=== PATIENT | male | born 1955 | race Caucasian/White ===

== ENCOUNTER 2020-12-07 14:16 | Outpatient (CLI) | payer BC, SELFPAY ==
--- NOTE | 2020-12-07 14:31 | ECHO_ITS ---
Patient Info Name: Arie Ortiz Age: 65 years : 1955 Gender: Male Ht: 73 in Wt: 235 lbs BSA: 2.37 m2 HR: 82 bpm BP: 123 / 81 mmHg Technical Quality: Good Exam Date: 12/07/2020 3:05 PM Exam Location: [facility] Patient Status: Outpatient Admit Date: 12/07/2020 Staff Ordering Physician: Edd Reyes DO Brick Molder Hand: Ruby Roca RDCS Attending Provider: Edd Reyes DO Referring Physician: Eric HIGGINBOTHAM; Exam Type: CA echo doppler color flow Study Info Indications R94.31 - Abnormal electrocardiogram ECG EKG Complete two-dimensional, color flow and Doppler transthoracic echocardiogram is performed. Summary 1. Complete two-dimensional, color flow and Doppler transthoracic echocardiogram is performed. 2. Left ventricular chamber dimension is normal. 3. Left ventricular systolic function is normal, estimated at 60-65%. 4. The left ventricular diastolic function is grade I diastolic dysfunction. 5. E/e' 9 is minimally elevated. 6. Left atrial chamber dimension is mildly enlarged. 7. Right atrial chamber dimension is mildly enlarged. 8. There is moderate aortic valve sclerosis. 9. There is trace tricuspid valve regurgitation. 10. No pulmonary hypertension, estimated pulmonary arterial systolic pressure is 32 mmHg. Left Ventricle E/e' 9 is minimally elevated. Left ventricular chamber dimension is normal. Left ventricular systolic function is normal, estimated at 60-65%. The left ventricular diastolic function is grade I diastolic dysfunction. Right Ventricle Right ventricular chamber dimension is normal. Right ventricular systolic function is normal. Left Atria Left atrial chamber dimension is mildly enlarged. Right Atria Right atrial chamber dimension is mildly enlarged. Aortic Valve The aortic valve is trileaflet. There is moderate aortic valve sclerosis. There is no aortic valve stenosis. There is no aortic valve regurgitation. Pulmonic Valve There is no pulmonic regurgitation. Mitral Valve There is no mitral valve stenosis. There is no mitral valve regurgitation. Tricuspid Valve There is trace tricuspid valve regurgitation. No pulmonary hypertension, estimated pulmonary arterial systolic pressure is 32 mmHg. Pericardium/Pleural There is no pericardial effusion. Inferior Vena Cava Normal inferior vena cava with >50% collapse upon inspiration consistent with normal right atrial pressure, 5 mmHg. Aorta The aortic root size at the sinus of Valsalva is normal. Left Ventricular Outflow Tract Name Value Normal LVOT 2D LVOT Diameter 2.1 cm LVOT Doppler LVOT Peak Gradient 6 mmHg LVOT Mean Gradient 3 mmHg LVOT VTI 22 cm LVOT VTI/AV VTI Ratio 0.6 LVOT Stroke Volume 75 ml LVOT CO 17.5 l/min LVOT CI 7.4 l/min/m2 Pulmonic Valve Name
== END 2020-12-07 14:17 | disposition home or self-care (01) ==
PROVIDERS: PCP Internal Medicine; Visit Provider Internal Medicine
DX: R94.31 Abnormal electrocardiogram [ECG] [EKG] (principal); R00.1 Bradycardia, unspecified; I35.1 Nonrheumatic aortic (valve) insufficiency
CPT/HCPCS: 93306

== ENCOUNTER 2021-03-05 10:27 | Emergency (ER) | payer BC, SELFPAY ==
--- NOTE | ~2021-03-05 | XR_ITS ---
EXAMINATION: XR lumbar spine 2-3V DATE: 03/05/2021 11:38 INDICATION: Right-sided low back pain TECHNIQUE: Anteroposterior and lateral views of the lumbar spine, and cone-down lateral view of the l umbosacral junction were obtained. COMPARISON: 06/05/2016 FINDINGS: Alignment is normal. Vertebral body heights are normal. No significant change in moderate disc height loss at L5-S1. Again seen are small anterior osteophytes at L3-L5. Multilevel mild lumbar facet oste oarthritis. Sacral arches are intact. Mild bilateral sacroiliac osteoarthritis. Normal bowel gas ness adiel. 7 mm calcification project over the lower pole of the right kidney potentially renal stone. IMPRESSION: 1. Spondylosis with unchanged moderate disc height loss at L5-S1. No acute osseous abnormality. 2. Possible 7 mm right renal stone. Reviewed, dictated and finalized at location A. SALTER IMPRESSION: 1. Spondylosis with unchanged moderate disc height loss at L5-S1. No acute osse ous abnormality. 2. Possible 7 mm right renal stone.
--- NOTE | ~2021-03-05 | CT_ITS ---
EXAMINATION: CT abdomen pelvis wo con DATE: 03/05/2021 12:05 INDICATION: Right flank pain and nausea TECHNIQUE: Computed tomography (CT) of the abdomen and pelvis was performed without intravenous contr ast. Automated exposure control and iterative reconstruction technique were employed. The dose-length product was 958.20 mGy-cm. COMPARISON: CT pelvis dated 09/10/2016 FINDINGS: Lung bases are clear. Heart size is normal. No pericardial or pleural effusion. Atherosclerotic coron juanita artery calcification. Aortic valve calcification. A few tiny hepatic and splenic calcifications c onsistent with old granulomatous disease. Liver, pancreas, left kidney and bilateral adrenal glands a re normal. 2.2 cm right renal cyst. 1 mm stone in the mid right kidney and 6 mm stone at a lower pole of the right kidney. No ureteral stones or hydronephrosis. Bladder is normal. Mild prostatomegaly me asuring 4.5 x 3.7 cm. There are a few cecal diverticula without adjacent inflammatory change to sugge st diverticulitis. Small bowel is normal with no obstruction. The appendix is not visualized. No kentrell cecal inflammatory change to suggest acute appendicitis. No free intraperitoneal gas or fluid. No pat hologically enlarged abdominal or pelvic lymphadenopathy. Mild scattered degenerative skeletal change s in the spine and pelvis. Bone island at the left superior pubic ramus. IMPRESSION: 1. Nonobstructing right nephrolithiasis. 2. Mild prostatomegaly. Reviewed, dictated and finalized at location A. ERING MACHINE FEEDER
--- NOTE | ~2021-03-05 | XR_ITS ---
EXAMINATION: XR abdomen/kub 1V DATE: 03/05/2021 12:35 INDICATION: Kidney stone. Nausea. TECHNIQUE: A supine view of the abdomen on 2 radiographs was obtained. COMPARISON: CT abdomen and pelvis 03/05/2021 FINDINGS: There are no dilated loops of bowel. There is a 6 mm stone in right kidney. There is a phle bolith in right pelvis. IMPRESSION: 1. 6 mm stone in right kidney. Reviewed, dictated and finalized at location B. RAGE HOST
[2021-03-05 10:36] VITALS: BP 145/80; PULSE 87; RESP 15; TEMP 35.7; O2SAT 100
[2021-03-05 10:58] LABS: Basophils Percent Auto 0.3 % (0.2-1.2); Eosinophils Absolute Auto 0.1 K/mm3 (0-0.3); Eosinophils Percent Auto 1.1 % (0-4.4); Hematocrit 44.6 % (42.0-52.0); Hemoglobin 15.1 g/dL (14.0-18.0); Immature Granulocyte Absolute 0.05 K/mm3 (0.00-0.031); Immature Granulocyte Percent A 0.5 % (0-0.5); Lymphocytes Percent Auto 25.9 % (18.3-44.2); Mean Corpuscular HGB Conc 33.9 g/dl (32-36); Mean Corpuscular Hemoglobin 28.8 pg (26-34); Mean Platelet Volume 10.8 fl (7.4-10.4); Monocytes Absolute Auto 0.7 K/mm3 (0.1-0.6); Monocytes Percent Auto 7.6 % (2.6-8.5); Neutrophils Percent Auto 64.6 % (45.5-73.1); Platelet Count Result 242 k/mm3 (150-375); Red Blood Count 5.25 M/mm3 (4.6-6.20); Red Cell Distribution Width 13.3 % (11.5-14.5); White Blood Count 9.3 K/mm3 (4.5-10.0)
[2021-03-05 11:07] LABS: Alanine Aminotransferase 22 U/L (4-50); Albumin Level 4.7 g/dL (3.5-5.1); Alkaline Phosphatase 89 U/L (38-126); Anion Gap 13 mmol/L (8-16); Aspartate Amino Transferase 22 U/L (17-59); Bilirubin,Total 0.9 mg/dL (0.2-1.3); Blood Urea Nitrogen 17 mg/dL (9-20); Calcium 9.5 mg/dL (8.4-10.2); Carbon Dioxide 22 mmol/L (22-30); Chloride 98 mmol/L (98-107); Estimated CRCL calculation 82 ml/min; Estimated Glomerular Filt Rate > 60; Glucose 162 mg/dL (65-110); Lipase 612 U/L (23-300); Potassium 4.1 mmol/L (3.4-5.0); Sodium 133 mmol/L (137-145)
--- NOTE | 2021-03-05 11:45 | ED.GENADULT ---
HPI - General Adult General Chief complaint: Back Pain/Injury Stated complaint: real bad pains in R flank Time Seen by Provider: 03/05/21 11:13 Source: patient History of Present Illness HPI narrative: Patient is 65 y/o male complaining of right back pain starting 3 days ago. He describes his pain as sharp, stabbing and rates it as 8/10. He took Alleve and Mucinex, which did not help. His pain radiates to right upper abdomen. He feels a knot sometimes on his abdominal wall. He has no vomiting, diarrhea, dysuria or hematuria. He denies recent injury to back. Related Data Allergies Allergy/AdvReac Type Severity Reaction Status Date / Time No Known Allergies Allergy Unknown Verified 02/27/20 10:28 Review of Systems Constitutional: Constitutional: Denies chills, Denies fever(s), Denies headache(s) and Denies weakness Eyes: Eyes: Denies blurry vision ENT: Denies headache(s) and Denies neck pain Cardiovascular: Cardiovascular: Denies chest pain and Denies dyspnea Respiratory: Respiratory: Denies cough and Denies dyspnea Gastrointestinal: Gastrointestinal: Reports abdominal pain, Denies diarrhea, Denies nausea and Denies vomiting Genitourinary: Genitourinary: Denies hematuria and Denies dysuria Musculoskeletal: Musculoskeletal: Reports back pain and Denies neck pain Neurologic: Denies headache(s) and Denies weakness PMFSH Past Medical History Medical History Diabetes mellitus Essential hypertension Hyperlipemia Family History Family History Mother Family history of Alzheimer's disease Sibling Family history of coronary artery disease Social History Social History Smoking status: Former smoker Smoking end date: 04/13/98 Alcohol intake: never Exam Const: General: no acute distress, well developed and anxious Orientation/consciousness: oriented to person, oriented to place, oriented to time and patient oriented x3 HENMT: Head: normocephalic Ears: external ears normal General nose exam: Normal external nose present Eyes: General: appearance normal, both eyes and all related structures Conjunctivae: conjunctivae normal Neck: Neck: normal visual inspection and full ROM Chest: Chest palpation & inspection: normal inspection of the chest and no tenderness Resp: Effort & Inspection: normal respiratory effort Auscultation: clear to auscultation bilaterally Cardio: Rate: regular rate Rhythm: regular rhythm GI: GI Palp: No abdominal tenderness and Yes Soft to palpation Skin: General skin exam: normal color and turgor normal Neuro: General: oriented to person, oriented to place, oriented to time and patient oriented x3 Cognition (Neuro): normal cognition Extrem: General: normal to inspection, full ROM and no pedal edema Psych: Appearance: grossly normal Mental Status: mental status grossly normal Affect: Anxious affect present Course Consultations Consultation #1: Discussed with Tri (urology), who states non obstructive stone is not the cause of pain. Patient can follow up with urology as outpatient. Date: 03/05/21 Time: 16:25 Vital Signs Vital signs: Vital Signs Temperature 35.7 C L 03/05/21 10:36 Pulse Rate 87 03/05/21 10:36 Respiratory Rate 15 03/05/21 10:36 Blood Pressure 145/80 H 03/05/21 10:36 Pulse Oximetry 100 03/05/21 10:36 Temperature 35.7 C L 03/05/21 10:36 Pulse Rate 75 03/05/21 13:59 Respiratory Rate 18 03/05/21 13:59 Blood Pressure 185/93 H 03/05/21 13:59 Pulse Oximetry 100 03/05/21 13:59 Medical Decision Making Vital Signs Vital Signs: Vital Signs Temperature 35.7 C L 03/05/21 10:36 Pulse Rate 87 03/05/21 10:36 Respiratory Rate 15 03/05/21 10:36 Blood Pressure 145/80 H 03/05/21 10:36 Pulse Oximetry 100 03/05/21 10:36 Temperature 35.7 C L 03/05/21 10:36
[2021-03-05 11:54] LABS: Add Urine Microscopic? NO; Appearance Urine Clear (Clear); Bilirubin Urine Negative (Negative); Blood Urine Negative (Negative); Color Urine Yellow (Yellow); Glucose Urine UA Negative (Negative); Ketones Urine Negative (Negative); Leukocyte Esterase Ur Negative LEU/UL (Negative); Nitrate Urine Negative (Negative); Protein Urine Negative (Negative); Specific Grav Ur 1.017 (1.001-1.035); Urobilinogen Urine Negative mg/dL (<2.0)
[2021-03-05] MEDS: KETOROLAC 30 MG/ML VIAL (*BKC) IV PUSH (12:07)
[2021-03-05] MEDS: SODIUM CHLORIDE 0.9% IV 1,000 ML 999 ML IV CONT (12:08)
[2021-03-05] MEDS: CYCLOBENZAPRINE HCL 10 MG TABLET PO (12:08)
[2021-03-05] MEDS: ONDANSETRON INJ 4 MG/2 ML VIAL IV PUSH (12:24)
[2021-03-05] MEDS: diazePAM INJ (*CRX) 10 MG/2 ML SYRINGE 5 MG IV PUSH (13:54)
[2021-03-05 13:59] VITALS: BP 185/93; PULSE 75; RESP 18; O2SAT 100
== END 2021-03-05 19:04 | disposition home or self-care (01) ==
PROVIDERS: Emergency Medicine; Emergency Provider Emergency Medicine; PCP Internal Medicine
DX: M54.41 Lumbago with sciatica, right side (principal); N20.0 Calculus of kidney; N40.0 Benign prostatic hyperplasia without lower urinary tract symptoms; E11.9 Type 2 diabetes mellitus without complications; I10 Essential (primary) hypertension; E78.5 Hyperlipidemia, unspecified
CPT/HCPCS: 36415; 72100; 74018; 74176; 80053; 81003; 83690; 85025; 96361; 96374; 96375; 99284; A9270; J1885; J2405; J3360; J7030

== ENCOUNTER 2021-03-26 12:34 | Outpatient (CLI) | payer BC, SELFPAY ==
[2021-03-26 13:15] LABS: INR 0.9; Prothrombin Time 12.1 Seconds (11.1-14.7)
[2021-03-26 13:16] LABS: Partial Thromboplastin Time 30.7 SECONDS (22.3-36.8)
== END 2021-03-26 12:35 | disposition home or self-care (01) ==
LOC: ANHSURGERY 12:38
PROVIDERS: PCP Internal Medicine; Visit Provider Urology
DX: Z01.812 Encounter for preprocedural laboratory examination (principal); N20.0 Calculus of kidney
CPT/HCPCS: 36415; 85610; 85730; 87086; 87088

== ENCOUNTER 2021-03-29 03:30 | Day surgery (SDC) | payer BC, SELFPAY ==
[2021-03-25 15:01] VITALS: BMI 29.9
--- NOTE | 2021-03-25 15:20 | PC.NURSE ---
Report to the Outpatient Waiting Room, entrance under the green pavilion located off [facility], at time _11:30AM on date 03/29/21 . OR Time: __1:30PM . - You and your visitor will be asked a series of questions to screen for COVID 19 for your protection. - A mask is required within the hospital. - Only one visitor is allowed at this time. Patient visitors will be guided where to wait when not with patient. Preoperative COVID Testing Requirements: No COVID Test needed if: (proof is required; if not received patient will have Rapid Test prior to entry) - Patient has received COVID Vaccine at least 14 days prior to procedure date or - Patient has positive COVID test result within last 90 days of surgery date. COVID Test needed if above criteria is not met If not COVID vaccinated a COVID test must be conducted within 72 hours of surgery and patient is asked to isolate self from time of testing until procedure. You will go to the [facility] for your COVID testing. The [facility] site is located at the corner of [address] from [facility]. You will only be called if COVID results are positive and your surgeon may reschedule your elective surgery date. Patients may have clear liquids (water, carbonated beverages, clear teas, apple juice) until 3 hours prior to surgery with a maximum of 20 ounces. - No food from midnight until time of surgery - Infants may have breast milk until 4 hours before surgery, infant formula 6 hours prior to surgery. - Children will be allowed to drink immediately following surgery. If applicable, please bring a bottle or sippy cup to assist with drinking. Juice, water, soda, and popsicles are readily available. For infants on formula, please bring formula the day of surgery. Pacifiers are allowed. Take the following medications with a SIP of water the morning of surgery: CYCLOBENZAPRINE NEEDED Medications to discontinue per physician NONE Date to take last dose Please no make-up, nail french, hairspray, perfume, deodorant, or body powder the day of surgery. No jewelry (including any body piercings) or valuables the day of surgery, leave them at home. Please take a shower or bath the night before, or the morning of, surgery with an antibacterial soap. Wear comfortable, loose fitting clothing. Children are encouraged to wear pajamas. - Jewelry must be removed prior to entering the operating room. Rings and piercings that are not removed may be cut off. - The hospital will not accept responsibility for valuables. - Please leave all valuables, including medications, at home the day of surgery. If you are going home after surgery, a licensed coach tour driver must drive you home. - NO public transportation without another adult. - We recommend that an adult stay with you for 24 hours following discharge. - We also recommend that you do not drive, make important decision, drink alcoholic beverages, or take any drugs that were not prescribed by your health care provider for at least 24 hours after your discharge time. For Pediatric surgeries, we recommend two adults accompany the child home (only one inside the building at this time). Follow any additional instructions given to you from your surgeon. Telephone instructions given to __PATIENT and asked if any additional questions and then verbalized understanding. Patient advised to call surgeon office or pre surgery nurse liaison [phone] if any additional questions.
[2021-03-29] VITALS (8 sets, daily range): BP systolic 128–156; BP diastolic 76–93; PULSE 55–78; RESP 14–56; TEMP 36.1–36.2; O2SAT 99–100
--- NOTE | ~2021-03-29 | XR_ITS ---
EXAMINATION: XR abdomen/kub 1V INDICATION: Right-sided stone TECHNIQUE: Supine views of the abdomen were obtained on 2 radiographs. COMPARISON: 03/05/2021 FINDINGS: There is an 8 mm stone in the lower pole of the right kidney. Phleboliths are noted in the pelvis. No additional urolithiasis is identified. The bowel gas pattern is normal. IMPRESSION: 1. 8 mm stone in the right kidney lower pole. Reviewed, dictated and finalized at location A. ITY PERSON
--- NOTE | 2021-03-29 06:47 | WPDHPUPDATE1 ---
History and Physical Update Update Date/Time: 03/29/21 06:47 History and Physical has been reviewed, including an updated exam of the patient. There are NO changes in the patient's condition. Risks, benefits, and alternatives have been discussed and questions answered. Patient agrees to proceed with procedure.
--- NOTE | 2021-03-29 12:28 | P.PNAN_ITS ---
Anes - Initial Pre Proc Eval Procedure: Operation Date: 03/29/21 14:00 Proposed Procedures p Right Renal, Extracorporeal Shock Wave Lithotripsy - Grover Steen MD Date/Time: 03/29/21 12:28 Surgeon: Grover Steen MD Pre Op Diagnosis: right renal stone Patient Data Age: 65 Gender: M Height: 1.85 m Weight: 103 kg Allergies Allergy/AdvReac Type Severity Reaction Status Date / Time No Known Allergies Allergy Unknown Verified 03/25/21 14:58 Home Medications Medication Instructions Recorded Confirmed Type blood sugar diagnostic #100 ea 08/29/20 03/12/21 Rx blood-glucose meter #1 ea 08/29/20 03/12/21 Rx lancets 30 gauge #100 ea 08/30/20 03/12/21 Rx metformin 1,000 mg tablet 1,000 mg PO BID #180 tablet 01/22/21 03/25/21 Rx sitagliptin 50 mg tablet 50 mg PO DAILY #90 tablet 01/28/21 03/25/21 Rx atorvastatin 20 mg tablet 20 mg PO DAILY #90 tablet 02/04/21 03/25/21 Rx cyclobenzaprine 10 mg PO TID PRN #10 tablet 03/05/21 03/25/21 Rx glimepiride 1 mg PO QAM 03/25/21 03/25/21 History hydrochlorothiazide 12.5 mg PO QAM 03/25/21 03/25/21 History lisinopril 20 mg PO QAM 03/25/21 03/25/21 History Patient hx anesthesia problems: none Family hx anesthesia problems: none Results Review: All pre-operative results and documents have been reviewed as part of the pre-operative evaluation. [facility] Past Medical History Medical History (Updated 03/29/21 @ 12:28 by Abilio Newell MD) Diabetes mellitus Essential hypertension Hyperlipemia Obesity Family History Family History Mother Family history of Alzheimer's disease Sibling Family history of coronary artery disease Social History Social History Smoking packs per day: 1 Smoking cigarettes per day: 20.0 Years smoked: 30 Smoking pack-years: 30.00 Smoking status: Former smoker Tobacco type: cigarettes Smoking end date: 04/13/98 Alcohol intake: never 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 Substance use: never Living arrangements: with family Additional living arrangements comments: Spiritual care concerns: No Anes - Eval Final PreProcedure Day of Procedure 03/29/21 12:28 Patient weight: obese Heart: regular rate and rhythm Lungs: clear to auscultation Airway: Mallampati scale class II Neurological: alert and oriented Last oral intake: >/= 8 hours ASA classification: III Emergent: no Anesthetic plan: proceed Anesthesia type and monitoring: general LMA and standard monitoring Results Review: All pre-operative results and documents have been reviewed as part of the pre-operative evaluation. Informed Consent: The patient's anesthetic plan and its attendant risks and benefits were discussed with the patient/family/POA. Questions were solicited and answers provided to the satisfaction of the patient/family/POA.
[2021-03-29] MEDS: LACTATED RINGERS 1,000 ML 30 ML IV CONT ×2 (13:12→15:00)
[2021-03-29 13:14] LABS: Glucose Point of Care 130 mg/dl (65-105)
[2021-03-29] MEDS: ceFAZolin 2 GM/D5W 50 ML 2 GM/50 ML BAG IVPB (13:15)
--- NOTE | 2021-03-29 13:22 | W.PM.PROC2 ---
Procedure Note - Detailed Date of Procedure 03/29/21 Pre-op Diagnosis Right renal stone Post-op Diagnosis same Procedure Performed The patient was brought to the operative suite where he was placed in the supine position on the Dornier lithotripsy table. The focal point of the lithotripter was placed at a 5mm right renal calculus. A total of 2500 shocks were delivered at a power setting of 4. There appeared to be good fragmentation of the stone. The patient tolerated the procedure well and was taken to the recovery room in good condition. Surgeon Grover Steen MD Anesthesia general Description of Procedure The patient was brought to the operative suite where [] was placed in the supine position on the Dornier lithotripsy table. The focal point of the lithotripter was placed at a 5mm right renal calculus. A total of 2500 shocks were delivered at a power setting of 4. There appeared to be good fragmentation of the stone. The patient tolerated the procedure well and was taken to the recovery room in good condition. Estimated Blood Loss 0 Drains No Packing No Pathology none sent Complications No immediate complications Condition stable Disposition PACU
[2021-03-29] MEDS: KETOROLAC 30 MG/ML VIAL (*BKC) IV PUSH (13:25)
[2021-03-29 14:32] LABS: Glucose Point of Care 122 mg/dl (65-105)
== END 2021-03-29 15:47 | disposition home or self-care (01) ==
PROVIDERS: PCP Internal Medicine; Visit Provider Urology
PROC: (CPT 50590; principal; 2021-03-29 14:00)
DX: N20.0 Calculus of kidney (principal); E11.9 Type 2 diabetes mellitus without complications; I10 Essential (primary) hypertension; E78.5 Hyperlipidemia, unspecified; Z79.84 Long term (current) use of oral hypoglycemic drugs; E66.9 Obesity, unspecified; Z68.30 Body mass index [BMI] 30.0-30.9, adult; Z87.891 Personal history of nicotine dependence
CPT/HCPCS: 50590; 74018; 82948; J0690; J1885; J2250; J2405; J2704; J7120

== ENCOUNTER → 2021-05-31 08:18 | Outpatient (CLI) | payer MEDICARE, SELFPAY ==
--- NOTE | ~2021-05-31 | CT_ITS ---
EXAMINATION: CT abdomen wo con DATE: 05/31/2021 08:53 INDICATION: Abdominal mass TECHNIQUE: Computed tomography (CT) of the abdomen was performed without intravenous contrast. Automa paul exposure control and iterative reconstruction technique were employed. Exam dose: 666.18 mGy-cm total exam DLP. COMPARISON: 03/29/2021 KUB 03/05/[address] abdomen pelvis FINDINGS: The lung bases are clear. Normal heart size. No pericardial or pleural effusion. The liver, gallbladder, bile ducts, spleen, pancreas, pancreatic duct, and adrenal glands are unremar kable. Approximately 1.7 cm mid renal probable cyst. Approximately 6 x 8 x 10.7 mm lower pole right renal nonobstructing calculus. The left kidney is unremarkable. No left or right ureteral calculus or hydroureteronephrosis is evide nt within the abdomen; the pelvis is not included. There is atherosclerotic calcification of the abdominal aorta and common iliac arteries but no abdomi nal aortic aneurysm. No intraperitoneal or retroperitoneal mass lesion or adenopathy or ascites. Very small fat-containing umbilical hernia. Diffuse idiopathic skeletal hyperostosis of the lower thoracic spine and moderate degenerative change of the lumbar spine. IMPRESSION: 1.7 cm right renal cyst Right renal calculus Reviewed, dictated and finalized at Location A. Reviewed, dictated and finalized at location B. RMODAL TRUCK DRIVER
== END ==
PROVIDERS: PCP Family Medicine; Visit Provider Family Medicine
DX: R19.00 Intra-abdominal and pelvic swelling, mass and lump, unspecified site (principal); N28.1 Cyst of kidney, acquired; N20.0 Calculus of kidney
CPT/HCPCS: 74150

== ENCOUNTER 2021-09-23 08:05 | Observation (INO) | payer MEDICARE, SELFPAY ==
[2021-09-23] VITALS (11 sets, daily range): BP systolic 137–193; BP diastolic 62–98; PULSE 52–90; RESP 14–24; TEMP 35.9–36.3; O2SAT 97–100; BMI 31.0
--- NOTE | ~2021-09-23 | XR_ITS ---
EXAMINATION: XR abdomen/kub 1V DATE: 09/23/2021 09:15 INDICATION: Right flank pain. TECHNIQUE: A supine view of the abdomen on 2 radiographs was obtained. COMPARISON: Abdomen radiographs 03/29/2021, CT abdomen and pelvis 09/23/2021 FINDINGS: There are no dilated loops of bowel. There is a 7 mm stone in right kidney. There is a 5 mm stone in proximal right ureter. There is a phlebolith in right pelvis. IMPRESSION: 1. 5 mm stone in proximal right ureter. 2. 7 mm right kidney stone. Reviewed, dictated and finalized at location B.
--- NOTE | ~2021-09-23 | XR_ITS ---
EXAMINATION: XR retrograde pyelo w/stent RT DATE: 09/23/2021 16:15 CDT INDICATION: RIGHT SIDE SPECIAL . TECHNIQUE: 93 fluoroscopic images of the lower abdomen were obtained during retrograde pyelography an d stent placement performed by the surgeon. I was not present in the operating room. Fluoroscopy expo sure time was 40.6 seconds. Cumulative dose was 0.35688 mGy2. COMPARISON: X-ray abdomen, same date FINDINGS: Right lower pole calcification. Retrograde contrast injection in the right ureter occurred with some intraluminal air bubbles. The 5 mm proximal right ureteral stone is again identified, initially is crews periorly displaced, then obscured by contrast. Wire access to the right pelvis and calyces. Subsequen t right ureteral stent placement, in good position. IMPRESSION: Fluoroscopic documentation of right retrograde pyelography with stent placement. Reviewed, dictated and finalized at location K. IMPRESSION: Fluoroscopic documentation of right retrograde pyelography with stent placement .
--- NOTE | ~2021-09-23 | XR_ITS ---
EXAMINATION: XR chest 1V portable DATE: 09/23/2021 08:25 INDICATION: Right rib pain TECHNIQUE: frontal view of the chest was obtained. COMPARISON: Chest radiograph dated 01/08/2006 FINDINGS: The lungs are clear with no focal airspace opacities, pulmonary edema, pleural effusion or pneumothor ax. The cardiomediastinal silhouette is normal. Visualized bones and soft tissues are unremarkable. IMPRESSION: 1. No acute cardiopulmonary disease. Reviewed, dictated and finalized at location A.
--- NOTE | ~2021-09-23 | CT_ITS ---
EXAMINATION: CT abdomen pelvis wo con DATE: 09/23/2021 08:58 INDICATION: Right flank pain. TECHNIQUE: Computed tomography (CT) of the abdomen and pelvis was performed without intravenous contr ast. Automated exposure control and iterative reconstruction technique were employed. The dose-length product was 1010.90 mGy-cm. COMPARISON: CT abdomen 05/31/2021 FINDINGS: The visualized portions of the lung bases demonstrate mild atelectasis. No pleural effusion . The heart size is normal. There are coronary artery calcifications. No pericardial effusion. The li venancio, gallbladder, and pancreas are normal. Calcifications in the spleen are consistent with old granu lomatous disease. The adrenal glands are normal. There is a 2.3 cm cyst in right kidney. There is a 7 mm stone in right kidney. There is mild right hydronephrosis. There is a 5 mm stone in proximal righ t ureter. There is a 1 mm stone in left kidney. The prostate is mildly enlarged. There are no dilated loops of bowel. The appendix is not visualized. There are no pathologically enlarged lymph nodes. Th ere is no free intraperitoneal fluid. There is severe lower lumbar spondylosis. IMPRESSION: 1. 5 mm stone in proximal right ureter with mild right hydronephrosis. 2. Bilateral nonobstructing kidney stones. Reviewed, dictated and finalized at location B.
--- NOTE | 2021-09-23 08:13 | ECG_ITS ---
Measurements Intervals [place] Rate: 77 P: 63 TX: 192 QRS: 75 QRSD: 116 T: 46 QT: 385 QTc: 438 Interpretive Statements BASELINE ARTIFACT, REDUCED ECG QUALITY SINUS RHYTHM NONSPECIFIC T-WAVE ABNORMALITY ABNORMAL ECG NO PREVIOUS ECG AVAILABLE FOR COMPARISON Electronically Signed On 09-23-2021 15:33:18 CDT by Jones Wharton M.D.
--- NOTE | 2021-09-23 08:21 | ED.ABDPAIN ---
HPI - Abdominal Pain General Chief Complaint: Abdominal Pain Stated Complaint: Right flank pain, N/V Source: patient, RN notes reviewed and old records reviewed Mode of arrival: EMS Limitations: no limitations History of Present Illness HPI narrative: This is a 66 year old female with history of kidney stone who presents for evaluation of right flank pain. He states his pain started last night. His pain has been constant and gradually worsened. He is having associated nausea and vomiting. He states his pain starts in his right flank and it radiates to his right upper abdomen. He reports history of kidney stone but he does not this this is due to kidney stone. He denies history of cholelithiasis. He denies dysuria, hematuria or increased urinary frequency. He denies cough, fever or shortness of breath. Rates pain 10/10. He was given 100 mcg fentanyl by EMS prior to arrival. Related Data Home Medications Medication Instructions Recorded Confirmed hydrochlorothiazide 12.5 mg tablet 12.5 mg PO QAM 03/25/21 09/23/21 Allergies Allergy/AdvReac Type Severity Reaction Status Date / Time No Known Allergies Allergy Unknown Verified 09/23/21 08:35 Review of Systems Review of Systems: All systems reviewed & are unremarkable except as noted in HPI and below Constitutional: Constitutional: Denies chills and Denies fatigue Cardiovascular: Cardiovascular: Denies chest pain and Denies rapid heart rate Respiratory: Respiratory: Denies chest congestion, Denies cough and Denies dyspnea Gastrointestinal: Gastrointestinal: Reports abdominal pain, Reports nausea and Reports vomiting Genitourinary: Genitourinary: Denies hematuria, Denies oliguria and Denies urinary frequency Musculoskeletal: Musculoskeletal: Reports back pain Neurologic: Denies focal weakness and Denies numbness Endocrine: Endocrine: Denies excessive sweating and Denies fatigue [facility] Past Medical History Medical History Diabetes mellitus Essential hypertension Hyperlipemia Obesity Family History Family History Mother Family history of Alzheimer's disease Sibling Family history of coronary artery disease Social History Social History Smoking packs per day: 1 Smoking cigarettes per day: 20.0 Years smoked: 30 Smoking pack-years: 30.00 Smoking status: Former smoker Alcohol intake: never 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 Substance use: never Additional living arrangements comments: Spiritual care concerns: No Exam Const: General: alert; No diaphoretic Other: appears to be in distress due to severe pain HENMT: Head: normal to inspection Eyes: Conjunctivae: conjunctivae normal EOM: EOMs intact bilaterally Chest: Chest palpation & inspection: normal inspection of the chest Resp: Effort & Inspection: normal respiratory effort Auscultation: clear to auscultation bilaterally Cardio: Rate: regular rate Rhythm: regular rhythm Heart sounds: no murmurs GI: GI Palp: Yes Soft to palpation, Yes Tenderness to palpation present (GI) (right flank,Diffuse), No Guarding due to palpation present (GI), No Rigid due to palpation and No Hernia present Auscultation: normal bowel sounds : General: Yes CVA tenderness on the right Back/Spine/Pelvis: Back: CVA tenderness Skin: General skin exam: normal color Rashes: no rashes Wounds: no wounds Neuro: General: patient oriented x3, moves all extremities and CN's II-XI intact bilaterally Extrem: General: normal to inspection Psych: Mental Status: mental status grossly normal Course Reevaluation(s) Reevaluation #1: Patient still having significant pain. Tri with urologist came to ER to see patient. He will be taken to [facility] for stent placement Date: 09/23/21 Time: 1
[2021-09-23] MEDS: HYDROmorphone HCL INJ (*CRX) 1 MG/ML SYR IV PUSH ×5 (08:22→19:01)
[2021-09-23] MEDS: ONDANSETRON INJ 4 MG/2 ML VIAL IV PUSH ×2 (08:22→10:11)
[2021-09-23] MEDS: SODIUM CHLORIDE 0.9% IV 1,000 ML 999 ML IV CONT (08:23)
[2021-09-23 08:44] LABS: Basophils Percent Auto 0.3 % (0.2-1.2); Hematocrit 44.2 % (42.0-52.0); Hemoglobin 14.1 g/dL (14.0-18.0); Immature Granulocyte Absolute 0.15 K/mm3 (0.00-0.031); Immature Granulocyte Percent A 1.1 % (0-0.5); Lymphocytes Absolute Auto 1.28 K/mm3 (0.9-3.2); Lymphocytes Percent Auto 9.3 % (18.3-44.2); Mean Corpuscular HGB Conc 31.9 g/dl (32-36); Mean Corpuscular Volume 84.7 fl (80-100); Mean Platelet Volume 10.6 fl (7.4-10.4); Monocytes Absolute Auto 1.1 K/mm3 (0.1-0.6); Monocytes Percent Auto 7.9 % (2.6-8.5); Neutrophils Absolute Auto 11.2 K/mm3 (1.3-6.7); Neutrophils Percent Auto 81.4 % (45.5-73.1); Platelet Count Result 292 k/mm3 (150-375); Red Blood Count 5.22 M/mm3 (4.6-6.20); Red Cell Distribution Width 14.6 % (11.5-14.5); White Blood Count 13.8 K/mm3 (4.5-10.0)
[2021-09-23 08:45] LABS: Appearance Urine Clear (Clear); Bilirubin Urine Negative (Negative); Blood Urine 2+ (Negative); Color Urine Yellow (Yellow); Glucose Urine UA 2+ mg/dL (Negative); Ketones Urine Negative (Negative); Leukocyte Esterase Ur Negative LEU/UL (Negative); Nitrate Urine Negative (Negative); Protein Urine 1+ mg/dL (Negative); Urobilinogen Urine 0.2 mg/dL (<2.0); pH Urine 7.5 (5.0-9.0)
[2021-09-23 08:51] LABS: Mucus Urine Rare /lpf; WBC Urine 0-3 /hpf
--- NOTE | 2021-09-23 08:52 | PC.NURSE ---
Pt at CAT scan at this time
[2021-09-23 08:53] LABS: Alanine Aminotransferase 25 U/L (6-50); Albumin Level 4.6 g/dL (3.5-5.1); Alkaline Phosphatase 108 U/L (38-126); Anion Gap 9 mmol/L (8-16); Aspartate Amino Transferase 21 U/L (17-59); Bilirubin,Total 0.6 mg/dL (0.2-1.3); Blood Urea Nitrogen 15 mg/dL (9-20); Calcium 9.1 mg/dL (8.4-10.2); Carbon Dioxide 24 mmol/L (22-30); Chloride 103 mmol/L (98-107); Estimated CRCL calculation 83 ml/min; Estimated Glomerular Filt Rate > 60; Glucose 262 mg/dL (65-110); Lipase 165 U/L (23-300); Sodium 136 mmol/L (137-145)
[2021-09-23 08:53] LABS: Lactic Acid Reflex 2.7 mmol/L (0.7-2.0)
[2021-09-23 08:54] LABS: Partial Thromboplastin Time 27.9 SECONDS (22.3-36.8); Prothrombin Time 12.3 Seconds (11.1-14.7)
[2021-09-23 08:55] LABS: Add Urine Microscopic? YES
[2021-09-23] MEDS: SODIUM CHLORIDE 0.9% IV 1,000 ML 125 ML IV CONT (10:47)
[2021-09-23 11:40] LABS: Reflex Lactic Acid Yes or No Add Lactic
--- NOTE | 2021-09-23 11:57 | WPDURCON ---
Assessment and Plan Assessment and plan (1) Ureteral calculus, right: Code(s): N20.1 - Calculus of ureter Status: Acute Assessment and Plan: Obtain Consent: Cystoscopy, right ureteroscopy with possible stone removal and right stent placement, right retrograde pyelogram and possible laser lithotripsy. Keep NPO. Plan to go to the OR this afternoon with Dr. Burgess. Obtain a urine cutlure. (2) Bilateral renal stones: Code(s): N20.0 - Calculus of kidney Status: Acute Assessment and Plan: Not visible on KUB and not obstructive, no plans to intervene at this time. Urology Consult Note HPI Date Seen: 09/23/21 Time Seen: 09:30 Requesting Physician: Fidencio Burgess MD Primary Care Provider: Edd Reyes, Consult Narrative Reason for consult: right proximal ureteral stone Narrative: Arie Ortiz is a 66 year old male who presented to the ER this morning in severe pain of the right flank. He is tachypneic, has hypertension, a WBC of 13.8 and UA shows just microhematuria. His CT scan reveals a 5mm right proximal ureteral stone as well as bilateral stones. His ureteral stone is present on KUB. He is in such severe pain at the bedside he wasn't able to answer many questions and was writhing around in his bed. He has a history of kidney stones and was recently seen in our office in 09/[address] Ruiz with plans to watch his stone with a KUB in 6 months. He was not in pain at that time. He denies dysuria, gross hematuria, abdominal pain or vomiting. He does state he has the, dry heaves. Review of Systems Cardiovascular: Cardiovascular: Denies chest pain Gastrointestinal: Gastrointestinal: Denies abdominal pain, Reports nausea and Denies vomiting Genitourinary: Genitourinary: Denies hematuria, Denies dysuria, Reports flank pain and Denies urinary frequency PMF Past Medical History Medical History Diabetes mellitus Essential hypertension Hyperlipemia Obesity Family History Family History Mother Family history of Alzheimer's disease Sibling Family history of coronary artery disease Social History Social History Smoking packs per day: 1 Smoking cigarettes per day: 20.0 Years smoked: 30 Smoking pack-years: 30.00 Smoking status: Former smoker Tobacco type: cigarettes Smoking end date: 04/13/98 Alcohol intake: never 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 [employer] Substance use: never Additional living arrangements comments: Spiritual care concerns: No Meds Home Medications and Allergies Home Medications Medication Instructions Recorded Confirmed Type blood sugar diagnostic (OneTouch #100 ea 08/29/20 04/09/21 Rx Verio test strips) blood-glucose meter (OneTouch #1 ea 08/29/20 04/09/21 Rx Verio Flex Meter) lancets 30 gauge (OneTouch Delica #100 ea 08/30/20 04/09/21 Rx Lancets) sitagliptin 50 mg tablet (Januvia) 50 mg PO DAILY #90 tabs 01/28/21 04/09/21 Rx atorvastatin 20 mg tablet 20 mg PO DAILY #90 tabs 02/04/21 04/09/21 Rx cyclobenzaprine 10 mg tablet 10 mg PO TID PRN back pain #10 tabs 03/05/21 04/09/21 Rx hydrochlorothiazide 12.5 mg tablet 12.5 mg PO QAM 03/25/21 04/09/21 History cephalexin 500 mg capsule 500 mg PO Q8H #9 caps 03/29/21 04/09/21 Rx hydrocodone 5 mg-acetaminophen 325 1 - 2 tablet PO Q6H PRN pain #20 03/29/21 04/09/21 Rx mg tablet tabs metformin 1,000 mg tablet 1,000 mg PO BID #180 tabs 05/02/21 Rx lisinopril 20 mg tablet See Rx Instructions .Route 06/13/21 Rx .COMPLEX #90 tabs suvorexant 10 mg tablet (Belsomra) 10 mg PO QHS PRN insomnia #30 tabs 07/10/21 Rx Allergies Allergy/AdvReac Type Severity Reaction Status Date / Time No Known Allergies Allergy Unknown Verified 09/23/21 08:35 Vital Signs Vital Signs - 24 hr
--- NOTE | 2021-09-23 12:12 | ADMGEN ---
This patient, Arie Ortiz, was admitted to 3 [facility] Surg Room 312-01 at 1205. Patient/family oriented to hospital policies and general routines including ID bracelet, bed and alarms, visiting hours, pain management, procedures, bathroom and other care routines, personal items, smoking policy, room service/diet, and visiting hours. Information on how to activate the Rapid Response Team has been discussed. Patient/Family are encouraged to report perceived risks to care and to ask questions if they do not understand what they are told or what they should do.
[2021-09-23 12:48] LABS: Glucose Point of Care 199 mg/dl (65-105)
[2021-09-23 13:04] LABS: Lactic Acid 1.1 mmol/L (0.7-2.0)
--- NOTE | 2021-09-23 14:39 | PC.NURSE ---
pt off floor at this time for surgery.
[2021-09-23] MEDS: LACTATED RINGERS 1,000 ML 30 ML IV CONT ×2 (14:55→17:37)
--- NOTE | 2021-09-23 15:18 | WPDANESEPPF ---
Anes - Initial Pre Proc Eval Procedure: Operation Date: 09/23/21 16:00 Proposed Procedures p Cystoscopy, Right Ureteroscopy, Right Retrograde Pyelogram, Possible Right Stone Extraction, Possible Right Stent Placement, Possible Holmium Laser Procedure - Fidencio Burgess MD Date/Time: 09/23/21 15:18 Surgeon: Fidencio Burgess MD Pre Op Diagnosis: RIGHT PROXIMAL IRETERAL CALCULUS Patient Data Age: 66 Gender: M Height: 1.85 m Weight: 106.7 kg Last Vital Signs Temp 36.1 C L 09/23/21 13:47 Pulse 69 09/23/21 13:47 Resp 16 09/23/21 13:47 BP 164/62 H 09/23/21 13:47 Pulse Ox 100 09/23/21 13:47 O2 Del Method Room Air 09/23/21 12:29 Allergies Allergy/AdvReac Type Severity Reaction Status Date / Time No Known Allergies Allergy Unknown Verified 09/23/21 08:35 Home Medications Medication Instructions Recorded Confirmed Type blood sugar diagnostic (OneTouch #100 ea 08/29/20 04/09/21 Rx Verio test strips) blood-glucose meter (OneTouch #1 ea 08/29/20 04/09/21 Rx Verio Flex Meter) lancets 30 gauge (OneTouch Delica #100 ea 08/30/20 04/09/21 Rx Lancets) sitagliptin 50 mg tablet (Januvia) 50 mg PO DAILY #90 tabs 01/28/21 09/23/21 Rx atorvastatin 20 mg tablet 20 mg PO DAILY #90 tabs 02/04/21 09/23/21 Rx cyclobenzaprine 10 mg tablet 10 mg PO TID PRN back pain #10 tabs 03/05/21 09/23/21 Rx hydrochlorothiazide 12.5 mg tablet 12.5 mg PO QAM 03/25/21 09/23/21 History hydrocodone 5 mg-acetaminophen 325 1 - 2 tablet PO Q6H PRN pain #20 03/29/21 09/23/21 Rx mg tablet tabs metformin 1,000 mg tablet 1,000 mg PO BID #180 tabs 05/02/21 09/23/21 Rx lisinopril 20 mg tablet See Rx Instructions .Route 06/13/21 09/23/21 Rx .COMPLEX #90 tabs Laboratory Tests 09/23/21 09/23/21 09/23/21 08:32 08:33 08:33 WBC 13.8 K/mm3 H K/mm3 (4.5-10.0) RBC 5.22 M/mm3 M/mm3 (4.6-6.20) Hgb 14.1 g/dL g/dL (14.0-18.0) Hct 44.2 % % (42.0-52.0) MCV 84.7 fl fl (80-100) MCH 27.0 pg pg (26-34) MCHC 31.9 g/dl L g/dl (32-36) RDW 14.6 % H % (11.5-14.5) Plt Count 292 k/mm3 k/mm3 (150-375) MPV 10.6 fl H fl (7.4-10.4) Immature Gran % (Auto) 1.1 % H % (0-0.5) Neut % (Auto) 81.4 % H % (45.5-73.1) Lymph % (Auto) 9.3 % L % (18.3-44.2) [place] % (Auto) 7.9 % % (2.6-8.5) Eos % (Auto) 0.0 % % (0-4.4) Baso % (Auto) 0.3 % % (0.2-1.2) Lymph # (Auto) 1.28 K/mm3 K/mm3 (0.9-3.2) [place] # (Auto) 1.1 K/mm3 H K/mm3 (0.1-0.6) Eos # (Auto) 0.0 K/mm3 K/mm3 (0-0.3) Baso # (Auto) 0.0 K/mm3 K/mm3 (0.0-0.1) Abs Immat Gran (auto) 0.15 K/mm3 H K/mm3 (0.00-0.031) Absolute Neuts (auto) 11.2 K/mm3 H K/mm3 (1.3-6.7) Absolute Nucleated RBC 0.0 K/mm3 K/mm3 (0.0-0.012) Nucleated RBC % 0.0 % % (0.0-0.2) PT 12.3 Seconds Seconds (11.1-14.7) INR 1.0 APTT 27.9 SECONDS SECONDS (22.3-36.8) Sodium Potassium Chloride Carbon Dioxide Anion Gap BUN Creatinine Estim Creat Clear Calc Estimated GFR Glucose POC Capillary Glucose Lactic Acid 2.7 mmol/L H mmol/L (0.7-2.0) Calcium Total Bilirubin AST ALT Alkaline Phosphatase Total Protein Albumin Lipase Urine Color Urine Appearance Urine pH Ur Specific [place] Urine Protein Urine Glucose (UA) Urine Ketones Ur Blood (Man) Urine Nitrate Urine Bilirubin Urine Urobilinogen Leukocyte Esterase Rfl Urine RBC Urine W
--- NOTE | 2021-09-23 16:07 | WPDHPUPDATE1 ---
History and Physical Update Update Date/Time: 09/23/21 16:07 History and Physical has been reviewed, including an updated exam of the patient. There are NO changes in the patient's condition. Risks, benefits, and alternatives have been discussed and questions answered. Patient agrees to proceed with procedure.
[2021-09-23] MEDS: ceFAZolin 2 GM/D5W 50 ML 2 GM/50 ML BAG IVPB (16:15)
[2021-09-23] MEDS: LIDOCAINE HCL 2% GEL UROJET 10 ML PKG MUCOUS MEM (16:31)
--- NOTE | 2021-09-23 17:24 | P.OP_ITS ---
Procedure Note - Detailed Date of Procedure 09/23/21 Pre-op Diagnosis RIGHT PROXIMAL IRETERAL CALCULUS Post-op Diagnosis Same Procedure Performed Cystoscopy, right retrograde pyelogram, right ureteroscopy, holmium laser lithotripsy, basket stone extraction, stent placement Surgeon Fidencio Burgess MD Anesthesia General Indications This is a gentleman with a proximal right ureteral stone who was admitted to the emergency room. He is here today for ureteroscopy. Understands risks of bleeding, infection, damage to the urinary tract, inability remove the stone. He agrees to proceed Findings Proximal ureteral stone was lithotripsy and removed. Right renal stone is in a deep lower pole calyx which was hard to access Description of Procedure Description: He has correctly identified. Informed consent obtained. From the operating room. He was given general anesthesia. He was prepped and draped in a sterile fashion. Given appropriate perioperative antibiotics. A time-out performed. I performed cystoscopy. The bladder exam was normal. I did retrograde pyelogram on the right showing a mid ureteral stone. There is hydronephrosis proximal to the stone. His ureteral stone in his renal stone cou ld be seen on baggage checker radiograph. I put a guidewire to the kidney. I dilated the ureteral orifice the 8/10 dilator. I performed flexible ureteroscopy. He had a tight distal ureter but the rest of the ureter accommodated the scope nicely. As I got up to the mid ureter I could see that the stone had been pushed into the kidney. I was able to get the ureteral scope into the kidney. I examined all calices. The 5 mm stone was seen in the upper pole kidney. There is a 7 mm stone and a deep lower pole calyx. I attempted to basket and moved the stone to the upper pole however I could only see the stone in this calyx and was unable to get a basket or laser any instrument into the calyx. I then basketed the upper pole ureteral stone. I brought into the ureter. It could not be extracted intact. I used the holmium laser to fragment the stone. Once fragmented all the fragments when done in distal ureter. I then used the rigid ureteral scope. Again he had a very tight distal ureter. But I was able to get the rigid ureteral scope up to the stone. There were 3 fragments. All were extracted intact. I then reperformed a retrograde pyelogram to outline the anatomy. I placed a 6 [place] variable length stent. Proximal coil in the kidney. Distal coil in the bladder. The bladder was drained. He was awakened transferred to PACU in stable condition. Implants Ureteral stent Estimated Blood Loss 1 Drains Yes (Stent) Pathology Yes (Stone sent for analysis) Complications No immediate complications Condition Stable Disposition PACU
[2021-09-23 17:40] LABS: Glucose Point of Care 144 mg/dl (65-105)
--- NOTE | 2021-09-23 17:40 | SUR.PHASEI ---
oral airway removed at [id number]
--- NOTE | 2021-09-23 17:58 | SUR.PHASEI ---
Dr Burgess called for orders regarding frequency and burning with urination. One time order for oxybutynin received.
[2021-09-23] MEDS: fentaNYL CITRATE INJ (*CRX) 100 MCG/2 ML VIAL 25 MCG IV PUSH ×2 (18:03→18:16)
[2021-09-23] MEDS: OXYBUTYNIN CHLORIDE 5 MG TABLET PO (18:08)
--- NOTE | 2021-09-23 18:50 | PC.NURSE ---
pt back in room at this time.
--- NOTE | 2021-09-23 19:21 | PC.NURSE ---
Tolerated fluids, jello, and pudding. Urinated upon arrival from PACU
--- NOTE | 2021-09-25 13:15 | PM.DS ---
DS: Admitting Diagnosis Discharge Date 09/23/21 Admitting Diagnosis ureteral stone DS: Discharge Diagnosis Discharge Diagnosis (1) Ureteral calculus, right: Code(s): N20.1 - Calculus of ureter Status: Acute Plan He will follow-up for stent removal in 2 weeks DS: Summary Hospital Course Reason for hospitalization: ureteral stone Hospital Course: he was admitted for pain control. He was taken the OR for ureteral stone. it was extracted. He was sent home the same day Status at Discharge Cognitive/behavioral status at discharge: stable Time Spent with Patient Time attestation: Total time spent providing and/or coordinating discharge services: DS: Data Data Completed and Pending Pending studies at discharge: Pending at discharge 09/23/21 17:03 Surgical [PTH] Routine Discharge Plan Discharge Attending physician on discharge: Fidencio Burgess Consulting providers: Dwain Stewart ; Georges Colon V. ; Tri Corbett ; Prince Ivan ; Manuel Velez Discharging Clinician: Fidencio Burgess Anticipated Discharge Date/Time: 09/23/21 17:28 Patient Disposition: Home, Self-Care Activity: august shower Diet: as tolerated Wound Care Instructions: follow printed instructions Discharge Instructions: Follow-up in [address] Ruiz for stent removal Patient Instructions: Antibiotic Form Stand Alone Forms: General Discharge Information Follow-up/Referrals: Fidencio Burgess MD [Physician] - (Two weeks with Dr. Ruiz [phone]) Discharge Medications: New hydrocodone-acetaminophen 5-325 mg tablet 1 tablet PO Q6H PRN (Reason: pain) Qty: 20 0RF phenazopyridine [Pyridium] 200 mg tablet 200 mg PO TID PRN (Reason: pain) Qty: 30 0RF docusate sodium [Colace] 100 mg capsule 100 mg PO BID Qty: 60 0RF nitrofurantoin monohyd/m-cryst [Macrobid] 100 mg capsule 100 mg PO Q12H 5 Days Qty: 10 0RF Rx Instructions: must administer with a meal/food Continued cyclobenzaprine 10 mg tablet 10 mg PO TID PRN (Reason: back pain) Qty: 10 0RF hydrochlorothiazide 12.5 mg tablet 12.5 mg PO QAM hydrocodone-acetaminophen 5-325 mg tablet 1 - 2 tablet PO Q6H PRN (Reason: pain) Qty: 20 0RF Januvia 50 mg tablet 50 mg PO DAILY Qty: 90 1RF atorvastatin 20 mg tablet 20 mg PO DAILY Qty: 90 1RF metformin 1,000 mg tablet 1,000 mg PO BID Qty: 180 1RF lisinopril 20 mg tablet See Rx Instructions .ROUTE .COMPLEX Qty: 90 1RF Dose Instruction: TAKE 1 TABLET BY MOUTH EVERY DAY Rx Instructions: TAKE 1 TABLET BY MOUTH EVERY DAY No Action (DME) blood-glucose meter [OneTouch Verio Flex meter] Misc See Rx Instructions .Route Qty: 1 0RF Rx Instructions: Use to test blood sugar once a day (DME) OneTouch Verio test strips Strip See Rx Instructions .Route Qty: 100 3RF Rx Instructions: Use to test blood sugar once a day (DME) lancets [OneTouch Delica Lancets] 30 gauge misc See Rx Instructions .Route Qty: 100 2RF Rx Instructions: change after every blood sugar check Date of admission: 09/23/21 10:26 Primary Care Provider: Edd Reyes Admitting Provider: Fidencio Burgess Attending physician on admission: Fidencio Burgess Condition: Stable
== END 2021-09-23 19:24 | disposition home or self-care (01) ==
LOC: ANHED 10:03 → ANH3MEDSUR 10:59
PROVIDERS: Admitting Provider Urology; Emergency Provider General Practice; PCP Internal Medicine; Visit Provider Urology
PROC: (CPT 52352; principal; 2021-09-23 16:00)
DX: N13.2 Hydronephrosis with renal and ureteral calculous obstruction (principal); E11.9 Type 2 diabetes mellitus without complications; I10 Essential (primary) hypertension; E78.5 Hyperlipidemia, unspecified; E66.9 Obesity, unspecified; Z68.31 Body mass index [BMI] 31.0-31.9, adult; Z87.891 Personal history of nicotine dependence; Z79.84 Long term (current) use of oral hypoglycemic drugs
CPT/HCPCS: 52356; 36415; 71045; 74018; 74176; 74420; 80053; 81001; 82365; 82948; 83605; 83690; 85025; 85610; 85730; 88300; 93005; 96361; 96365; 96375; 96376; 99285; A9270; C1769; C2617; G0378; J0131; J0690; J1100; J1170; J2405; J2704; J3010; J7030; J7120; Q9966

== ENCOUNTER 2021-11-05 10:57 | Outpatient (CLI) | payer MEDICARE, SELFPAY ==
--- NOTE | ~2021-11-05 | XR_ITS ---
XR abdomen/kub 1V 11/05/2021 11:15 Indication: Right renal stone Procedure: KUB Comparison: 09/23/2021 Findings: There is a 9 mm right renal stone at the lower pole. Bowel gas pattern is nonobstructive. T here are pelvic phleboliths. No acute osseous abnormality. Impression: 1: Stable right renal stone measuring 9 mm. Reviewed, dictated and finalized at location A. Impression: 1: Stable right renal stone measuring 9 mm.
== END 2021-11-05 10:58 | disposition home or self-care (01) ==
PROVIDERS: PCP Internal Medicine; Visit Provider Urology
DX: N20.0 Calculus of kidney (principal)
CPT/HCPCS: 74018

== ENCOUNTER 2022-12-01 10:17 | Outpatient (CLI) | payer MEDICARE, SELFPAY ==
[2022-12-01 11:41] LABS: Basophils Percent Auto 0.5 % (0.2-1.2); Eosinophils Absolute Auto 0.2 K/mm3 (0-0.3); Eosinophils Percent Auto 2.1 % (0-4.4); Hematocrit 41.1 % (42.0-52.0); Hemoglobin 13.2 g/dL (14.0-18.0); Immature Granulocyte Absolute 0.06 K/mm3 (0.00-0.031); Immature Granulocyte Percent A 0.7 % (0-0.5); Lymphocytes Absolute Auto 2.28 K/mm3 (0.9-3.2); Lymphocytes Percent Auto 26.4 % (18.3-44.2); Mean Corpuscular HGB Conc 32.1 g/dl (32-36); Mean Corpuscular Hemoglobin 28.6 pg (26-34); Mean Platelet Volume 11.3 fl (7.4-10.4); Monocytes Absolute Auto 0.7 K/mm3 (0.1-0.6); Monocytes Percent Auto 8.2 % (2.6-8.5); Neutrophils Absolute Auto 5.4 K/mm3 (1.3-6.7); Neutrophils Percent Auto 62.1 % (45.5-73.1); Platelet Count Result 206 k/mm3 (150-375); Red Blood Count 4.62 M/mm3 (4.6-6.20); Red Cell Distribution Width 13.8 % (11.5-14.5); White Blood Count 8.7 K/mm3 (4.5-10.0)
[2022-12-01 11:54] LABS: Alanine Aminotransferase 32 U/L (6-50); Albumin Level 4.4 g/dL (3.5-5.1); Anion Gap 3 mmol/L (8-16); Aspartate Amino Transferase 34 U/L (17-59); Bilirubin,Total 0.7 mg/dL (0.2-1.3); Blood Urea Nitrogen 16 mg/dL (9-20); Calcium 9.3 mg/dL (8.4-10.2); Carbon Dioxide 32 mmol/L (22-30); Chloride 100 mmol/L (98-107); Cholesterol 192 mg/dL (0-200); Estimated Glomerular Filt Rate > 60; Glucose 161 mg/dL (65-110); HDL Direct 46 mg/dL; Potassium 5.1 mmol/L (3.4-5.0); Sodium 135 mmol/L (137-145); Triglycerides 102 mg/dL (<150)
[2022-12-01 11:55] LABS: Alkaline Phosphatase 82 U/L (38-126)
[2022-12-01 12:01] LABS: LDL Cholesterol Direct 113 mg/dL
[2022-12-01 12:20] LABS: Prostate Specific Antigen 2.4 ng/mL (< OR = 4.0)
[2022-12-05 10:42] LABS: Apolipoprotein B 108 mg/dL (<90)
== END 2022-12-01 10:18 | disposition home or self-care (01) ==
LOC: ANHGOSHLAB 10:19
PROVIDERS: PCP Internal Medicine; Visit Provider Internal Medicine
DX: D64.9 Anemia, unspecified (principal); E11.9 Type 2 diabetes mellitus without complications; Z12.5 Encounter for screening for malignant neoplasm of prostate; I10 Essential (primary) hypertension
CPT/HCPCS: 36415; 80053; 80061; 82172; 83036; 84153; 85025; G0103

== ENCOUNTER 2022-12-10 08:01 | Outpatient (CLI) | payer MEDICARE, SELFPAY ==
[2022-12-14 10:55] LABS: Adrenocorticotropic Hormone 28 pg/mL (6-50)
== END 2022-12-10 08:02 | disposition home or self-care (01) ==
PROVIDERS: PCP Internal Medicine; Visit Provider Internal Medicine
DX: E87.5 Hyperkalemia (principal); R53.83 Other fatigue
CPT/HCPCS: 36415; 82024; 82533

== ENCOUNTER 2023-01-20 10:37 | Outpatient (CLI) | payer MEDICARE, SELFPAY ==
[2023-01-20 11:45] LABS: Anion Gap 10 mmol/L (8-16); Blood Urea Nitrogen 16 mg/dL (9-20); Calcium 9.2 mg/dL (8.4-10.2); Carbon Dioxide 26 mmol/L (22-30); Chloride 99 mmol/L (98-107); Estimated Glomerular Filt Rate > 60; Glucose 155 mg/dL (65-110); Sodium 135 mmol/L (137-145)
[2023-01-20 12:51] LABS: Folic Acid 16.1 ng/mL (2.76->20)
== END 2023-01-20 10:38 | disposition home or self-care (01) ==
LOC: ANHLAB 10:38
PROVIDERS: PCP Internal Medicine; Visit Provider Internal Medicine
DX: E87.5 Hyperkalemia (principal); E53.8 Deficiency of other specified B group vitamins; G47.19 Other hypersomnia
CPT/HCPCS: 36415; 80048; 82746

== ENCOUNTER 2023-01-28 01:03 | Day surgery (SDC) | payer MEDICARE, SELFPAY ==
[2023-01-15 12:58] VITALS: BMI 29.0
--- NOTE | 2023-01-27 14:56 | PM.HPGS ---
History of Present Illness History of Present Illness Consent: Risks, benefits, and alternatives have been discussed and questions answered. Patient agrees to proceed with procedure. Chief complaint: neoplasm screening Narrative: Arie Ortiz is a 67 year old male referred for colon cancer screening. 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 [employer] Substance use: current Substance use type: marijuana Other substance usage details: gummies, Last use: 01/13 Lack of Transportation: No Lack of Food: Never True Current Housing: Decline to Answer Concerned About Future Housing: Decline to Answer Difficulty Paying Gas/Electric Bills: Decline to Answer Difficulty Paying for Meds: Decline to Answer Currently Unemployed: Decline to Answer Education: Decline to Answer Difficulty w/ Childcare or Family Care: Decline to Answer Living arrangements: with family Additional living arrangements comments: Spiritual care concerns: No Meds Home Medications and Allergies Home Medications Medication Instructions Recorded Confirmed Type blood sugar diagnostic (ReserveOutTouch #100 ea 08/29/20 12/29/22 Rx Verio test strips) blood-glucose meter (OneTouch #1 ea 08/29/20 12/29/22 Rx Verio Flex Meter) lancets 30 gauge (OneTouch Delica #100 ea 08/30/20 12/29/22 Rx Lancets) sildenafil 100 mg tablet 50 - 100 mg PO DAILY PRN sexual 06/02/22 01/15/23 Rx activity #30 tabs lisinopril 20 mg tablet See Rx Instructions .Route 09/16/22 01/15/23 Rx .COMPLEX #90 tabs celecoxib 200 mg capsule (Celebrex) 200 mg PO DAILY 12/01/22 01/15/23 History tamsulosin 0.4 mg capsule (Flomax) 0.4 mg PO QHS #30 caps 12/01/22 01/15/23 Rx atorvastatin 40 mg tablet 40 mg PO DAILY #90 tabs 12/07/22 01/15/23 Rx empagliflozin 10 mg tablet 10 mg PO DAILY #90 tabs 12/07/22 01/15/23 Rx (Jardiance) metformin 1,000 mg tablet See Rx Instructions .Route 12/24/22 01/15/23 Rx .COMPLEX #180 tabs Allergies Allergy/AdvReac Type Severity Reaction Status Date / Time No Known Allergies Allergy Unknown Verified 01/28/23 08:37 Exam Resp: Auscultation: clear to auscultation bilaterally Cardio: Rate: regular rate Rhythm: regular rhythm GI: GI Palp: Yes Soft to palpation and No Tenderness to palpation present (GI) Assessment and Plan Assessment and plan (1) Screening for colon cancer: Code(s): Z12.11 - Encounter for screening for malignant neoplasm of colon Status: Acute Assessment and Plan: Colonoscopy with possible biopsy or polypectomy or cautery or injection of substances.
[2023-01-28 08:39] VITALS: BP 164/93; PULSE 60; RESP 18; TEMP 36.6; O2SAT 100
[2023-01-28] MEDS: LACTATED RINGERS 1,000 ML 150 ML IV CONT (08:51)
[2023-01-28 08:53] LABS: Glucose Point of Care 177 mg/dl (65-105)
--- NOTE | 2023-01-28 09:19 | WPDANESEPPF ---
Anes - Initial Pre Proc Eval Procedure: Operation Date: 01/28/23 10:00 Proposed Procedures p Screening Colonoscopy - Timothy Kitchen MD Date/Time: 01/28/23 09:19 Surgeon: Timothy Kitchen MD Pre Op Diagnosis: neoplasm screening Patient Data Age: 67 Gender: M Height: 1.85 m Weight: 101.1 kg Last Vital Signs Temp 97.8 F 01/28/23 08:39 Pulse 60 01/28/23 08:39 Resp 18 01/28/23 08:39 BP 164/93 H 01/28/23 08:39 Pulse Ox 100 01/28/23 08:39 O2 Del Method Room Air 01/28/23 08:39 Allergies Allergy/AdvReac Type Severity Reaction Status Date / Time No Known Allergies Allergy Unknown Verified 01/28/23 08:37 Home Medications Medication Instructions Recorded Confirmed Type blood sugar diagnostic (OneTouch #100 ea 08/29/20 12/29/22 Rx Verio test strips) blood-glucose meter (OneTouch #1 ea 08/29/20 12/29/22 Rx Verio Flex Meter) lancets 30 gauge (OneTouch Delica #100 ea 08/30/20 12/29/22 Rx Lancets) sildenafil 100 mg tablet 50 - 100 mg PO DAILY PRN sexual 06/02/22 01/15/23 Rx activity #30 tabs lisinopril 20 mg tablet See Rx Instructions .Route 09/16/22 01/15/23 Rx .COMPLEX #90 tabs celecoxib 200 mg capsule (Celebrex) 200 mg PO DAILY 12/01/22 01/15/23 History tamsulosin 0.4 mg capsule (Flomax) 0.4 mg PO QHS #30 caps 12/01/22 01/15/23 Rx atorvastatin 40 mg tablet 40 mg PO DAILY #90 tabs 12/07/22 01/15/23 Rx empagliflozin 10 mg tablet 10 mg PO DAILY #90 tabs 12/07/22 01/15/23 Rx (Jardiance) metformin 1,000 mg tablet See Rx Instructions .Route 12/24/22 01/15/23 Rx .COMPLEX #180 tabs Laboratory Tests 01/28/23 08:43 POC Capillary Glucose 177 H mg/dl (65-105) Patient hx anesthesia problems: none Family hx anesthesia problems: none Results Review: All pre-operative results and documents have been reviewed as part of the pre-operative evaluation. [facility] Past Medical History Medical History Diabetes mellitus Essential hypertension Hyperlipemia Obesity Family History Family History Mother Family history of Alzheimer's disease Sibling Family history of coronary artery disease Social History Social History Smoking packs per day: 1 Smoking cigarettes per day: 20.0 Years smoked: 30 Smoking pack-years: 30.00 Smoking status: Former smoker Tobacco type: cigarettes Alcohol intake: never 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 Substance use: current Substance use type: marijuana Other substance usage details: gummies, Last use: 01/13 Lack of Transportation: No Lack of Food: Never True Current Housing: Decline to Answer Concerned About Future Housing: Decline to Answer Difficulty Paying Gas/Electric Bills: Decline to Answer Difficulty Paying for Meds: Decline to Answer Currently Unemployed: Decline to Answer Education: Decline to Answer Difficulty w/ Childcare or Family Care: Decline to Answer Living arrangements: with family Additional living arrangements comments: Spiritual care concerns: No Anes - Eval Final PreProcedure Day of Procedure 01/28/23 09:19 Patient weight: overweight Heart: regular rate and rhythm Lungs: clear to auscultation Airway: Mallampati scale class II Neurological: alert and oriented Last oral intake: >/= 8 hours ASA classification: III Emergent: no Anesthetic plan: proceed Anesthesia type and monitoring: general GIVS and standard monitoring Results Review: All pre-operative results and documents have been reviewed as part of the pre-operative evaluation. Informed Consent: The patient's anesthetic plan and its attendant risks and benefits were discussed with the patient/family/POA. Questions were solicited and answers provided to the satisfaction of the patient/family/POA.
[2023-01-28 09:59] VITALS: BP 137/88; PULSE 53; RESP 15; O2SAT 100
[2023-01-28 10:09] VITALS: BP 131/88; PULSE 52; RESP 18; O2SAT 100
[2023-01-28 10:20] VITALS: BP 130/82; PULSE 56; RESP 16; O2SAT 100
== END 2023-01-28 10:25 | disposition home or self-care (01) ==
PROVIDERS: PCP Internal Medicine; Visit Provider Internal Medicine Gastroenterology
PROC: 0DJD8ZZ Inspection of Lower Intestinal Tract, Via Natural or Artificial Opening Endoscopic (ICD-10-PCS; CPT 45378; principal; 2023-01-28 10:00)
DX: Z12.11 Encounter for screening for malignant neoplasm of colon (principal); K57.30 Diverticulosis of large intestine without perforation or abscess without bleeding; Z86.010 Personal history of colon polyps; I10 Essential (primary) hypertension; E11.9 Type 2 diabetes mellitus without complications; E78.5 Hyperlipidemia, unspecified; Z79.84 Long term (current) use of oral hypoglycemic drugs; Z87.891 Personal history of nicotine dependence; F12.90 Cannabis use, unspecified, uncomplicated
CPT/HCPCS: G0105; 82948; J2704; J7120

== ENCOUNTER 2023-02-02 06:49 | Outpatient (CLI) | payer MEDICARE, SELFPAY | END 2023-02-02 06:50 | disposition home or self-care (01) | LOC: ANHOUTPT 06:51 | PROVIDERS: PCP Internal Medicine; Visit Provider Internal Medicine | DX: G47.10 Hypersomnia, unspecified (principal); E87.5 Hyperkalemia | CPT/HCPCS: 36415; 82533; 96372; J0834 ==

== ENCOUNTER 2023-06-08 10:52 | Outpatient (CLI) | payer MEDICARE, SELFPAY ==
[2023-06-08 18:21] LABS: Hemoglobin A1C 7.7 % (<5.7)
== END 2023-06-08 10:53 | disposition home or self-care (01) ==
LOC: ANHGOSHLAB 10:53
PROVIDERS: PCP Internal Medicine; Visit Provider Internal Medicine
DX: E11.9 Type 2 diabetes mellitus without complications (principal)
CPT/HCPCS: 36415; 83036

== ENCOUNTER 2023-07-02 11:25 | Outpatient (CLI) | payer MEDICARE, SELFPAY ==
--- NOTE | ~2023-07-02 | XR_ITS ---
AP view of the pelvis and AP and lateral views of the bilateral hips Clinical history: Pain Findings: No acute fracture or dislocation is seen. Osseous alignment is anatomic. Bilateral hip and SI joint spaces are preserved. Soft tissues are unremarkable. Impression: No significant abnormality is seen. Reviewed, dictated and finalized at location . Impression: No significant abnormality is seen.
--- NOTE | ~2023-07-02 | XR_ITS ---
XR lumbar spine 6V w bending DATE: 07/02/2023 11:59 INDICATION: Spondylosis without myelopathy or radiculopathy TECHNIQUE: Standing AP, lateral, bilateral oblique views, coned lateral lumbosacral lateral view. Fle xion and extension lateral views. COMPARISON: None FINDINGS: Included lower thoracic and lumbar pedicles are intact. There is severe degenerative disease and prominent spurring at L5-S1. Moderate degenerative disc dise ase at L4-5. There is mild degenerative disease at the remaining lumbar interspaces. No fracture or bone destruction, spondylolysis or spondylolisthesis or instability is evident. The sacral iliac joints are intact. IMPRESSION: Moderately severe degenerative disease at L5-S1, moderate degenerative disease at L4-5. M ild degenerative disease at the remainder of the lumbar spine Reviewed, dictated and finalized at location L. IMPRESSION: Moderately severe degenerative disease at L5-S1, moderate degenerat jack disease at L4-5. Mild degenerative disease at the remainder of the lumbar s pine
== END 2023-07-02 11:26 ==
PROVIDERS: PCP Anesthesiology Pain Medicine; Visit Provider Anesthesiology Pain Medicine
DX: M25.559 Pain in unspecified hip (principal); M47.817 Spondylosis without myelopathy or radiculopathy, lumbosacral region; M54.9 Dorsalgia, unspecified; M15.9 Polyosteoarthritis, unspecified; M51.37 Other intervertebral disc degeneration, lumbosacral region
CPT/HCPCS: 72114; 73521

== ENCOUNTER 2023-07-14 06:57 | Outpatient (CLI) | payer MEDICARE, SELFPAY ==
--- NOTE | ~2023-07-14 | MR_ITS ---
MRI of the lumbar spine Clinical History: Radiculopathy Technique: Axial T2-weighted images, and sagittal T1-weighted, T2-weighted, and T2 fat-sat images wer e acquired. Findings: There is no fracture or subluxation of the lumbar spine. Vertebral bodies maintain normal h eight and alignment. No suspicious bone marrow signal abnormality seen. At L1-L2, there is no significant disc bulge or herniation. There is mild facet arthropathy. No spina l canal stenosis or neural foraminal narrowing. At L2-L3, there is no disc bulge or herniation. There is mild facet arthropathy. No central canal parth nosis or neural foraminal narrowing. At L3-L4, there is diffuse disc bulge with mild facet arthropathy. No central canal stenosis. There i s minimal bilateral neural foraminal narrowing. At L4-L5, there is disc bulge with tiny annular fissure and moderate facet arthropathy. No central ca nal stenosis. There is moderate to severe bilateral neural foraminal narrowing. At L5-S1, there is moderate degenerative disc narrowing. There is mild disc bulge with moderate facet arthropathy. No central canal stenosis. There is severe bilateral neural foraminal narrowing. Paravertebral soft tissues are unremarkable. Impression: Moderate to advanced degenerative spondylosis at L4-L5 and L5-S1, as detailed above. Mild degenerative change otherwise. Reviewed, dictated and finalized at [facility]. Impression: Moderate to advanced degenerative spondylosis at L4-L5 and L5-S1, as detailed tanisha roque. Mild degenerative change otherwise.
== END 2023-07-14 06:58 ==
LOC: MICIMG 06:58
PROVIDERS: PCP Internal Medicine; Visit Provider Anesthesiology Pain Medicine
DX: M43.06 Spondylolysis, lumbar region (principal); M47.817 Spondylosis without myelopathy or radiculopathy, lumbosacral region
CPT/HCPCS: 72148

== ENCOUNTER 2023-08-11 07:21 | Day surgery (SDC) | payer MEDICARE, SELFPAY ==
[2023-07-29 14:44] VITALS: BMI 29.0
--- NOTE | ~2023-08-11 | XR_ITS ---
XR fluoroscopy no charge Indication: Bilateral L4-5, L5-S1 transforaminal epidural steroid injection TECHNIQUE: Fluoroscopy used during Bilateral L4-5, L5-S1 transforaminal epidural steroid injection p erformed by [Vu Lee MD] on 08/11/2023. 29 seconds of fluoroscopy with 142 fluoroscopic i mages captured. FINDINGS: Correlate with procedure note. IMPRESSION: Fluoroscopy used during Bilateral L4-5, L5-S1 transforaminal epidural steroid injection. Please refer to procedural report. Reviewed, dictated and finalized at location B. IMPRESSION: Fluoroscopy used during Bilateral L4-5, L5-S1 transforaminal epidur al steroid injection. Please refer to procedural report.
[2023-08-11 08:29] VITALS: BP 107/78; PULSE 80; RESP 16; TEMP 36.3; O2SAT 100
--- NOTE | 2023-08-11 08:33 | WPDHPUPDATE1 ---
History and Physical Update Update Date/Time: 08/11/23 08:33 History and Physical has been reviewed, including an updated exam of the patient. There are NO changes in the patient's condition. Risks, benefits, and alternatives have been discussed and questions answered. Patient agrees to proceed with procedure.
--- NOTE | 2023-08-11 08:33 | W.PM.PROC2 ---
Procedure Note - Detailed Date of Procedure 08/11/23 Pre-op Diagnosis Lumbar Spinal Stenosis w/Neurogenic Claudication, lumbar radiculopathy Post-op Diagnosis Same Procedure Performed bilateral Lumbar Transforaminal Epidural Steroid Injection under Fluoroscopic Guidance and with Contrast Control at L4-5, L5-S1. Surgeon Vu Lee MD Anesthesia Local Description of Procedure INFORMED CONSENT: Risks, benefits and alternatives to the procedure were discussed in detail with the patient who expressed explicit understanding and consent to proceed. Patient was informed verbally and in written form regarding the risks associated with the procedure including the low risk of serious infection, bleeding/bruising, allergic reaction, nerve or organ injury, paralysis, procedural site pain or discomfort, worsening pain and/or mobility, failure to treat and/or disfigurement. The patient expressed explicit understanding and consent to proceed. All materials required for the procedure were available prior to procedure start. Site and side was marked prior to procedure and confirmed in the presence of the patient. PROCEDURE IN DETAIL: The patient was brought to the procedural suite and placed in the prone position. Patient was made comfortable with use of pillows under the head/chest, hips and ankles. Skin overlying the injection site was prepared broadly with ChloraPrep applicator and draped in a sterile manner. Aseptic technique was employed throughout. The endplates of the vertebral body at the site of interest were aligned in the AP view. Ipsilateral oblique angulation was utilized to better visualize the neuroforamen of interest. Local anesthesia was established by infiltration with approximately 5 mL of 2% lidocaine via a 1-1/2 inch 27-gauge needle. A 22-gauge 5.0 inch Josep (pencil point) spinal needle was advanced until the needle approached the 6 o'clock position on the pedicle just superior to the exiting nerve root. on the rightat L4-5. Lateral view was utilized to confirm appropriate position of the needle tip within the superior and posterior portion of the respective foramen. In an AP view, 1 mL of Omnipaque 300 contrast medium was injected after negative aspiration for CSF, blood or other bodily fluid, showing appropriate neurogram without evidence of intravascular or intrathecal spread of contrast. Digital subtraction imaging was used with an additional 1ml of the same contrast medium to confirm absence of intravascular contrast spread. A 1mL solution containing 3mg of betamethasone was injected after negative repeat aspiration. Appropriate spread of the injectate was confirmed with washout of previously injected contrast. No parasthesias were elicited. Needle was removed completely intact without difficulty. The same exact procedure was repeated for all remaining levels on the ipsilateral side, right L5-S1 neuroforamen, modified as necessary to accommodate for the new target location with identical findings and results and no evidence of complication. the same exact procedure was then repeated for all remaining levels on the contralateral side, left L4-5, L5-S1 neural foramen, modified as necessary to accommodate for the new target location on the contralateral side with identical findings and results and no evidence of complication. Images were saved and documented in the patient chart. Patient's skin was cleaned and sterile bandage applied. The patient tolerated the procedure well. The patient was transported to the recovery area in stable condition where they were observed for an appropriate amount of time prior to discharge, without evidence of complication. The patient was instructed to avoid excessive activity for the next 48 hours, including climbing and frequent use of stairs. Showers only for 48 hours. They were instructed not to drive or operate heavy machinery for 24 hours. They are to monitor for severe headaches, fevers, chills, night sw
--- NOTE | 2023-08-11 09:15 | SUR.PREOP ---
Dr. Lee notified that patient took Celebrex up until 08/10/23 and did not hold for [address] Lee states understanding, no new orders at this time.
[2023-08-11 09:18] VITALS: BP 128/73; PULSE 70; RESP 12; O2SAT 98
[2023-08-11 09:28] VITALS: BP 101/59; PULSE 67; RESP 12; O2SAT 97
[2023-08-11] MEDS: LIDOCAINE HCL 1% PF INJ 5 ML VIAL 6 ML XX (09:34)
[2023-08-11] MEDS: BETAMETHASONE SODIUM PHOSPHATE PF INJ 6 MG/ML VIAL 12 MG INFILTRATE (09:35)
[2023-08-11] MEDS: LIDOCAINE HCL 2% PF INJ 5 ML VIAL 1 ML INFILTRATE (09:37)
[2023-08-11 09:38] VITALS: BP 110/74; PULSE 68; RESP 16; O2SAT 98
--- NOTE | 2023-08-11 09:44 | SUR.PHASEII ---
PT NO LONGER SWEATING OR NAUSEATED UPON ARRIVAL INTO [facility]. PT STATES HES FEELING BETTER NOW FROM OR.
== END 2023-08-11 09:55 | disposition home or self-care (01) ==
PROVIDERS: PCP Internal Medicine; Visit Provider Anesthesiology Pain Medicine
PROC: (CPT 64483; principal; 2023-08-11 09:15)
DX: M48.062 Spinal stenosis, lumbar region with neurogenic claudication (principal); M54.16 Radiculopathy, lumbar region
CPT/HCPCS: 64483; 64484; 99199

== ENCOUNTER 2023-12-03 10:06 | Outpatient (CLI) | payer MEDICARE, SELFPAY | END 2023-12-03 10:07 | disposition home or self-care (01) | LOC: ANHGOSHLAB 10:07 | PROVIDERS: PCP Internal Medicine; Visit Provider Clinical Nurse Specialist | DX: E11.9 Type 2 diabetes mellitus without complications (principal) | CPT/HCPCS: 36415; 83036 ==

== ENCOUNTER 2024-01-05 23:08 | Emergency (ER) | payer MEDICARE, SELFPAY ==
--- NOTE | ~2024-01-05 | CT_ITS ---
Clinical Indication: Chest pain, abdominal pain CT Scan of the Chest, Abdomen, and Pelvis with Contrast: Technique: Contiguous sections were acquired throughout the chest, abdomen, and pelvis after intraven ous administration of 100 cc of Omnipaque 350. Dose reduction technique was used on this scan by uti lizing automated exposure control and iterative reconstruction technique. The dose-length product (DL P) was 1180.57 mGy-cm. Comparison: 09/23/2021 Findings: There is no evidence of any significant mediastinal, hilar or axillary lymphadenopathy. The mediastin al soft tissues appear normal. There is no evidence of pleural or pericardial effusion. Calcified right upper lobe granuloma present. No other pulmonary abnormality seen. The liver, spleen, pancreas, gallbladder, adrenals and left kidney are within normal limits. 1 cm ovo id nonobstructing right renal stone present. There are atherosclerotic calcifications of the aorta. No lymphadenopathy. No bowel obstruction or bowel wall thickening. There is no evidence to suggest acute appendicitis. Urinary bladder is unremarkable. No pelvic mass seen. No ascites. Impression: No acute abnormalities seen. Nonobstructing right renal stone, as above. Reviewed, dictated and finalized at location . Impression: No acute abnormalities seen. Nonobstructing right renal stone, as above.
[2024-01-05 23:10] VITALS: BP 180/94; PULSE 102; RESP 21; TEMP 36.6; O2SAT 100
--- NOTE | 2024-01-05 23:19 | ECG_ITS ---
Test Date: 2024-01-05 23:12:42 Measurements Intervals [place] Rate: 95 P: 0 WI: 0 QRS: 29 QRSD: 110 T: 46 QT: 347 QTc: 438 Interpretive Statements ATRIAL FLUTTER/TACHYCARDIA INCOMPLETE RIGHT BUNDLE BRANCH BLOCK BASELINE ARTIFACT- I, II, III, AVR, AVL, AVF, V1-V6 ABNORMAL ECG No previous ECG available for comparison Electronically Signed On 01-06-2024 06:21:10 CDT by Nile Fleming D.O.
[2024-01-05] MEDS: LORazepam INJ (*CRX) 2 MG/ML VIAL 1 MG IV PUSH (23:23)
[2024-01-05 23:24] LABS: Basophils Percent Auto 0.3 % (0.2-1.2); Eosinophils Percent Auto 0.1 % (0-4.4); Hematocrit 41.3 % (42.0-52.0); Hemoglobin 13.8 g/dL (14.0-18.0); Immature Granulocyte Absolute 0.06 K/mm3 (0.00-0.031); Immature Granulocyte Percent A 0.5 % (0-0.5); Lymphocytes Absolute Auto 1.14 K/mm3 (0.9-3.2); Lymphocytes Percent Auto 9.5 % (18.3-44.2); Mean Corpuscular HGB Conc 33.4 g/dl (32-36); Mean Corpuscular Hemoglobin 28.6 pg (26-34); Mean Corpuscular Volume 85.5 fl (80-100); Mean Platelet Volume 10.9 fl (7.4-10.4); Monocytes Absolute Auto 0.4 K/mm3 (0.1-0.6); Monocytes Percent Auto 3.5 % (2.6-8.5); Neutrophils Absolute Auto 10.3 K/mm3 (1.3-6.7); Neutrophils Percent Auto 86.1 % (45.5-73.1); Platelet Count Result 262 k/mm3 (150-375); Red Blood Count 4.83 M/mm3 (4.6-6.20); Red Cell Distribution Width 14.3 % (11.5-14.5); White Blood Count 11.9 K/mm3 (4.5-10.0)
[2024-01-05] MEDS: HALOPERIDOL LACTATE 5 MG/ML VIAL IM (23:24)
[2024-01-05] MEDS: SODIUM CHLORIDE 0.9% IV 1,000 ML 999 ML IV CONT (23:24)
[2024-01-05] MEDS: diphenhydrAMINE HCl INJ 50 MG/ML VIAL 25 MG IV PUSH (23:24)
[2024-01-05 23:33] LABS: Alanine Aminotransferase 25 U/L (6-50); Albumin Level 4.8 g/dL (3.5-5.1); Alkaline Phosphatase 107 U/L (38-126); Anion Gap 15 mmol/L (4-12); Aspartate Amino Transferase 24 U/L (17-59); Bilirubin,Total 1.2 mg/dL (0.2-1.3); Blood Urea Nitrogen 10 mg/dL (9-20); Calcium 9.3 mg/dL (8.4-10.2); Carbon Dioxide 24 mmol/L (22-30); Chloride 97 mmol/L (98-107); Estimated CRCL calculation 88 ml/min; Estimated Glomerular Filt Rate > 60; Glucose 230 mg/dL (65-110); Lipase 76 U/L (23-300); Sodium 136 mmol/L (137-145)
[2024-01-06 01:14] LABS: Beta-Hydroxybutyrate/Acetoacetate 0.62 mmol/L (0.02-0.27)
[2024-01-06] MEDS: MORPHINE SULFATE (*CRX) 4 MG/ML INJ IV PUSH (01:24)
[2024-01-06 01:25] LABS: Troponin I < 0.012 ng/mL (0.000-0.034)
--- NOTE | 2024-01-06 01:29 | ED.ABDPAIN ---
HPI - Abdominal Pain General Chief Complaint: Abdominal Pain Stated Complaint: ABD PAIN Time Seen by Provider: 01/05/24 23:10 History of Present Illness HPI narrative: Patient is a 68-year-old male presents to the ER with abdominal pain, nausea, vomiting since noon this morning. He was brought in to the ER by EMS. Patient reports he has never experienced this before. He reports he smoked marijuana this morning. Patient endorses a history of diabetes and hypertension. He reports he has a primary care doctor and takes daily medications to control his hypertension and diabetes. Patient denies chest pain, shortness a breath, or other signs of illness. He denies diarrhea and reports his last bowel movement was earlier today. Related Data Home Medications Medication Instructions Recorded Confirmed celecoxib 200 mg capsule (Celebrex) 200 mg PO DAILY 12/01/22 12/07/23 metformin 1,000 mg tablet 1,000 mg PO BID 07/29/23 12/07/23 Allergies Allergy/AdvReac Type Severity Reaction Status Date / Time No Known Allergies Allergy Unknown Verified 01/05/24 23:15 Review of Systems Review of Systems: All systems reviewed & are unremarkable except as noted in HPI and below PMFSH Past Medical History Medical History Diabetes mellitus Essential hypertension Hyperlipemia Irregular heart rhythm Obesity Family History Family History Mother Family history of Alzheimer's disease Sibling Family history of coronary artery disease Social History Social History Smoking packs per day: 1 Smoking cigarettes per day: 20.0 Years smoked: 30 Smoking pack-years: 30.00 Smoking status: Former smoker Tobacco type: cigarettes Second hand tobacco smoke exposure: Yes Alcohol intake: current Alcohol use details: occasional Substance use: current Substance use type: marijuana Other substance usage details: gummies every other day Last use: 01/13 Do You Feel Safe in your Home?: Yes Lack of Transportation: No Lack of Food: Never True Current Housing: I Have Housing Concerned About Future Housing: No Difficulty Paying Gas/Electric Bills: YES Difficulty Paying for Meds: YES Currently Unemployed: No Education: Associate Degree Difficulty w/ Childcare or Family Care: No Living arrangements: with family Additional living arrangements comments: Spiritual care concerns: No Exam Narrative: GENERAL: Ill-appearing, well-nourished, non-toxic, in acute distress d/t vomiting and pain. HEAD: Normocephalic, atraumatic. NECK: Supple. No adenopathy, no masses. RESPIRATORY: Airway patent, respirations nonlabored. Clear to auscultation bilaterally, no rales, rhonchi, wheezing. CARDIOVASCULAR: Tachycardia, but regular rhythm without murmurs, rubs, or gallops. Peripheral pulses 2+ and equal bilaterally. ABDOMINAL: Soft, tender in all four quadrants, nondistended, no hepatosplenomegaly. Normoactive BS. MUSCULOSKELETAL: Moves all extremities. Strength/ROM intact without gross deformities. SKIN: Warm, dry, normal color. No rashes. NEURO: A&O X3. Speech clear. Cranial nerves II-XII grossly intact. No ataxic movements. Course Vital Signs Vital signs: Vital Signs Temperature 36.6 C 01/05/24 23:10 Pulse Rate 102 H 01/05/24 23:10 Respiratory Rate 21 H 01/05/24 23:10 Blood Pressure 180/94 H 01/05/24 23:10 Pulse Oximetry 100 01/05/24 23:10 Oxygen Delivery Room Air 01/05/24 23:10 Temperature 36.6 C 01/05/24 23:10 Pulse Rate 88 01/06/24 03:19 Respiratory Rate 15 01/06/24 03:19 Blood Pressure 164/94 H 01/06/24 03:19 Pulse Oximetry 100 01/06/24 03:19 Oxygen Delivery Room Air 01/05/24 23:10 MDM - Abdominal Pain MDM Narrative Medical decision making narrative: Patient is a 68-yea
[2024-01-06 02:11] LABS: Hemoglobin A1C 7.1 % (<5.7)
[2024-01-06 03:19] VITALS: BP 164/94; PULSE 88; RESP 15; O2SAT 100
[2024-01-06 03:31] LABS: Add Urine Microscopic? YES; Appearance Urine Clear (Clear); Bacteria Urine None Seen /hpf; Bilirubin Urine Negative (Negative); Blood Urine Negative (Negative); Color Urine Yellow (Yellow); Glucose Urine UA 3+ mg/dL (Negative); Ketones Urine 3+ mg/dL (Negative); Leukocyte Esterase Ur Negative LEU/UL (Negative); Nitrate Urine Negative (Negative); Non Pathogenic Casts 0-2; Protein Urine 2+ mg/dL (Negative); RBC Urine 0-2 /hpf (0-2); Specific Grav Ur 1.027 (1.001-1.035); Squamous Epithelial Cell Urine None Seen /hpf (Few); Urobilinogen Urine 0.2 mg/dL (<2.0); WBC Urine 0-5 /hpf (0-3); pH Urine 6.5 (5.0-9.0)
[2024-01-06 04:44] VITALS: BP 134/78; PULSE 96; RESP 15; O2SAT 100
== END 2024-01-06 04:44 | disposition home or self-care (01) ==
PROVIDERS: Emergency Provider Registered Nurse; PCP Internal Medicine
DX: R11.2 Nausea with vomiting, unspecified (principal); F12.90 Cannabis use, unspecified, uncomplicated; E86.0 Dehydration; E11.9 Type 2 diabetes mellitus without complications; Z79.84 Long term (current) use of oral hypoglycemic drugs; I10 Essential (primary) hypertension; E78.5 Hyperlipidemia, unspecified
CPT/HCPCS: 36415; 71260; 74177; 80053; 81001; 82010; 83036; 83690; 84484; 85025; 93005; 96361; 96372; 96374; 96375; 99284; J1200; J1630; J2060; J2270; J7030; Q9967

== ENCOUNTER 2024-05-18 10:31 | Outpatient (CLI) | payer MEDICARE, SELFPAY ==
[2024-05-18 17:33] LABS: Kit Draw Collected
== END 2024-05-18 10:32 | disposition home or self-care (01) ==
LOC: ANHGOSHLAB 10:32
PROVIDERS: PCP Internal Medicine; Visit Provider Internal Medicine
DX: Z76.89 Persons encountering health services in other specified circumstances (principal)
CPT/HCPCS: 36415

== ENCOUNTER 2024-06-15 08:35 | Outpatient (CLI) | payer MEDICARE, SELFPAY ==
--- NOTE | 2024-06-15 08:54 | ECHO_ITS ---
Patient Info Name: Arie Ortiz Age: 69 years : 1955 Gender: Male Ht: 73 in Wt: 237 lbs BSA: 2.38 m2 HR: 67 bpm BP: 124 / 80 mmHg Technical Quality: Fair Exam Date: 06/15/2024 9:08 AM Exam Location: Echo Lab Patient Status: Outpatient Admit Date: 06/15/2024 Staff Ordering Physician: Edd Reyes DO Passenger Rate Clerk: Henrietta Pennington RDCS Attending Provider: Edd Reyes DO Referring Physician: Eric HIGGINBOTHAM; Exam Type: CA echo doppler color flow Study Info Complete two-dimensional, color flow and Doppler transthoracic echocardiogram is performed. Summary 1. Left ventricular chamber dimension is normal. 2. Left ventricular systolic function is normal, estimated at 50-55%. 3. There is mildly increased left ventricular wall thickness. 4. The left ventricular diastolic function is grade I diastolic dysfunction. 5. Right ventricular systolic function is normal. 6. Left atrial chamber dimension is mildly enlarged. 7. Right atrial chamber dimension is mildly enlarged. 8. There is severe aortic valve sclerosis. 9. There is moderate aortic valve stenosis with a peak velocity of 280 cm/s, mean gradient of 18 mmHg, and aortic valve area of 1.3 cm2. 10. There is mild mitral valve regurgitation. 11. There is mild tricuspid valve regurgitation. Left Ventricle Left ventricular chamber dimension is normal. Left ventricular systolic function is normal, estimated at 50-55%. There is mildly increased left ventricular wall thickness. The left ventricular diastolic function is grade I diastolic dysfunction. Right Ventricle Right ventricular chamber dimension is normal. Right ventricular systolic function is normal. Left Atria Left atrial chamber dimension is mildly enlarged. Right Atria Right atrial chamber dimension is mildly enlarged. Atrial Septum Intact interatrial septum visualized by color flow imaging. Aortic Valve The aortic valve is probable trileaflet. There is severe aortic valve sclerosis. There is moderate aortic valve stenosis with a peak velocity of 280 cm/s, mean gradient of 18 mmHg, and aortic valve area of 1.3 cm2. There is no aortic valve regurgitation. Pulmonic Valve The pulmonic valve is not well visualized. Mitral Valve There is mild mitral valve regurgitation. The mitral valve annulus is mildly calcified. Tricuspid Valve There is mild tricuspid valve regurgitation. Pericardium/Pleural There is no pericardial effusion. Inferior Vena Cava Normal inferior vena cava with <50% collapse upon inspiration consistent with elevated right atrial pressure, 8 mmHg. Aorta The aortic root size at the sinus of Valsalva is normal. Left Ventricular Outflow Tract Name Value Normal LVOT 2D LVOT Diameter 2.1 cm LVOT Doppler LVOT Peak Gradient 5 mmHg LVOT Mean Gradient 3 mmHg LVOT VTI 25 cm LVOT VTI/AV VTI Ratio 0.4 LVOT Stroke Volume 84 ml LVOT CO 16.4 l/min LVOT CI 6.9 l/min/m2 Pulmonic Valve Name Value Normal PV Doppler PV Peak Gradient 5 mmHg Mitral Valve Name Value Normal MV Doppler MV Decel Sully 201 cm/s2 MV PHT 95 ms MV Area (PHT) 2.3 cm2 4.0-5.0 MV Diastolic Function MV E Peak Velocity 66 cm/s MV A Peak Velocity 104 cm/s MV E/A 0.6 MV Decel Time 329 ms MV Annular TDI MV E/e' (Septal) 9.4 <=8.0 MV E/e' (Lateral) 6.8 <=8.0 MV E/e' (Average) 8.1 Tricuspid Valve Name Value Normal TV Regurgitation Doppler TR Peak Velocity 210 cm/s TR Peak Gradient 18 mmHg Estimated PAP/RSVP RA Pressure 8 mmHg <=5 PA Systolic Pressure 26 mmHg <36 RV Systolic Pressure 26 mmHg <36 Aorta Name Value Normal Ascending Aorta Ao Root Diameter (MM) 4.3 cm Ao Root Diam Index (MM) 1.8 cm/m2 Aortic Valve Name Value Normal AV Doppler AV Peak Velocity 280 cm/s AV Peak Gradient 31 mmHg AV Mean Gradient 18 mmHg AV VTI 65 cm AV Area (Cont Eq VTI) 1.3 cm2 >=3.0 AV Area (Cont Eq Júnior) 1.4 cm2 AV Regurgitation 2D LVOT Area 3.4 cm2 Ventricles Name Value Normal LV Dimensions 2D/MM IVS Diastolic Thickness (2D) 1.3 cm 0.6-1.0 LVID Diastole (2D) 5.6 cm 4.2-5.8 LVIW Diastolic Thickness (2D) 1.3 cm 0.6-1.0 LVID Systole (2D) 4.3 cm 2.5-4.0 LVOT Diameter 2.1 cm LV Mass (2D Cubed) 311.81 g 88.00-224.00 LV Mass Index (2D Cubed) 131 g/m2 49-115 Relative Wall Thickness (2D) 0.47 LV Fractional Shortening/Ejection Fraction 2D/MM LV Fractional Shortening (2D) 23 % 25-43 LV EF (2D Teicholz) 45 % 52-72 LV Diastolic Volume (4C MOD) 167 ml LV EF (4C MOD) 55 % LV Diastolic Volume (2C MOD) 156 ml LV EF (2C MOD) 51 % LV Diastolic Volume (BP MOD) 163 ml 62-150 LV Diastolic Volume Index (BP MOD) 68 ml/m2 34-74 LV Systolic Volume (BP MOD) 79 ml 21-61 LV Systolic Volume Index (BP MOD) 33 ml/m2 11-31 LV EF (BP MOD) 51 % 52-72 LV Diastolic Length (4C) 9.7 cm LV Systolic Length (4C) 7.4 cm LV Stroke Volume (4C MOD) 92 ml Atria Name Value Normal LA Dimensions LA Dimension (MM) 5.0 cm 3.0-4.1 LA Volume (4C A-L) 71 ml LA Volume (BP A-L) 87 ml RA Dimensions RA Area (4C) 23.8 cm2 <=18.0 Report Signatures
--- OUTSIDE RECORDS SUMMARY | 2024-06-15 08:55 | XMS_ITS | Data Portability ---
Author Organization [place] [facility] [employer], Main Office Address [address] [place] [address] Care Team Providers Care Accounts Clerk Name Role Phone CHAPO DUMONT Primary Care Provider CHAPO DUMONT Referring Provider Assessment Encounter Date Assessment Date Assessment LastModified by Organization Details LastModified Time 10/09/2022 10/09/2022 Patient presents right hip buttock and back pain. It radiates down his leg particularly when he drives. He is worse with activity somewhat relieved by rest he is mildly tender over the sacroiliac area but pain is worse with straight leg raising. Neurologically he appears to be grossly intact strength is good reflexes symmetric. His x-rays of his hip show mild degenerative change. He is tender over the sacroiliac area but not as bad not enough to account for the pain he has. I think he has got stenosis of his back or the disc. I will check an MRI scan for this. Recommended a course of physical therapy. For prescription drug management try prednisone taper for pain and inflammation. sridhar Not available 10/09/2022 13:11:27 10/23/2022 10/23/2022 Patient returns back and hip pain. He presents with an MRI scan that shows stenosis particularly the lower lumbar levels. I reviewed the pictures and the report of the MRI with the patient in detail. I agree with the findings of stenosis. He has progressed reasonably well with conservative treatment. Recommend he continue with exercise will start him on some therapy. For prescription Drug manage will try Voltaren for pain and inflammation. I will see him back in a month for follow-up. I told him at this point I would like to avoid surgery. sridhar Not available 10/23/2022 11:12:07 11/20/2022 11/20/2022 Patient returns with stenosis and low back pain. The pain is resolved to a degree with conservative treatment. He continues to be symptomatic with certain activities and I recommended he continue with anti-inflammatory medication exercise. If this does not work the next step would be epidural injections. Because the Voltaren is upsetting his stomach we will switch him to Celebrex to see if this helps instead for prescription drug management. I will see him back in a month for follow-up and see assess his progress discussed. sridhar Not available 11/20/2022 11:48:32 Plan of Treatment Reminders Order Date Submit Date Provider Last Modified By Organization Details Last Modified Time Details Appointments None recorded. Lab CMP, serum or plasma [address] (Lab), [address] [place], [address], 4 14:31:13 T4, free, serum [address] (Lab), [address] [place], [address], 4 14:31:13 TSH, serum or plasma [address] (Lab), [address] [place], [address], 4 14:31:13 CBC w/ auto diff [address] (Lab), [address] [place], [address], 4 14:31:14 urinalysis , dipstick, reflex micro [address] (Lab), [address] [place], [address], 4 14:31:14 glucose, fingerstic k, blood 2023 024 [email or web address] [facility], [address], [place], [address], 4 14:31:14 Referral physical therapist referral - please contact patient to schedule 2022 023 [facility], [address], [place], [address], 3 15:05:20 Procedures None recorded. Surgeries None recorded. Imaging XR, chest, 2 view 2023 024 [email or web address] [facility], [address], [place], [address], 4 11:32:22 MRI, lumbar spine, w/o contrast 2022 023 [facility], [address], [place], [address], 3 14:23:36 XR, lumbar spine 2022 023 [email or web address] [facility] [place], [address], [place], [address], 3 13:37:42 XR, hip + pelvis, unilateral 2022 023 [email or web address] [facility] [place], [address], [place], [address], 3 14:57:33 Medication Orders phentermin e 37.5 mg tablet 2023 024 [place] [id number], [address], [place], [address], 4 09:45:55 celecoxib 200 mg capsule 2022 023 [email or web address] 58 [id number], [address], [place], [address], 3 12:34:22 diclofenac sodium 75 mg tablet,del ayed release 2022 023 [email or web address] [id number] 58 [facility] #[id number], [address], [place], [address], 3 11:06:37 prednisone 10 mg tablets in a dose pack 2022 023 [email or web address] 58 [facility] #[id number], [address], [place], [address], 3 13:13:16 phentermin e 37.5 mg tablet 2022 023 C[facility] #[id number], [address], [place], [address], 3 12:19:25 Medrol (Simón) 4 mg tablets in a dose pack 2022 023 [email or web address] [facility] #[id number], [address], [place], [address], 3 12:43:08 Patient TargetsNo targets recorded. Patient InstructionsNo instructions recorded. Reason for Referral Physical Therapist Referral for Spinal stenosis of lumbar region please contact patient to schedule Referring Physician: Suki Morris, Orthopedic Surgery, Encounter Date: 10/09/2022 Results Created Date Observation Date Name Description Value Unit Range Abnormal Flag Note LastModifiedBy Organization Detail LastModifiedTime 10/10/19 23 XR, hip + pelvi s, unila teral No observ ation record ed. [email or web address] [facility] [place] [address], [place], [address], 10/09/2022 13:11:49 10/10/19 23 XR, lumba r spine No observ ation record ed. [email or web address] [facility] [place] [address] [facility] [address], [place], [address], 10/09/2022 13:12:40 10/16/19 MRI L spine wo [facility] [address], [place] [address] [phone] Patiesequiel t Name: ARIE VERA Jacquie Access ion #: [id number] Sex: M : 1955 Locati on: IND Attend ing Physic jorge: Jordan mathews Physic jorge: SUKI MCWILLIAMS Exam Date: 10/16/19 7:38 AM Exam Name: MRI L SPINE WO Admitt ing Diagno sis(es ): RADIOL OGY REPORT - FINAL EXAM: MRI L SPINE WO HISTOR Y: pain 67 yo male with low back pain radiat ing down the right leg, no known injury . COMPAR ANTIONETTE: Lumbar spine radiog raphs dated October 09, 2022. TECHNI QUE: Multip lanar multis equenc e noncon trast MR images of the lumbar spine were perfor med. FINDIN GS: No fractu re or listhe sis are identi fied in the lumbar spine. The conus termin ates at L2. L1-L2: No signif icant discop athy, spinal canal stenos is, or neural forami nal Page 1 of 3 [facility] Alfonso t Name: ARIE VERA Jacquie Access ion #: [id number] Sex: M : 1955 Exam Date: 10/16/19 7:38 AM Exam Name: MRI L SPINE WO Admitt ing Diagno sis(es ): stenos is. There is bilate ral facet hypert rophy. L2-L3: There is a mild circum ferent ial broad disc bulge. There is mild bilate ral facet hypert rophy. No signif icant spinal canal stenos is. There is mild bilate ral neural forami nal stenos is. L3-L4: There is disc desicc ation withou t loss of disc height . There is a circum ferent ial broad disc bulge with endpla te hypert rophy. There is bilate ral facet hypert rophy. No signif icant spinal canal stenos is. There is mild bilate ral neural forami nal stenos is. L4-L5: There is disc desicc ation withou t loss of disc height . There is a circum ferent ial broad disc bulge. There is a lead pony rider ior disc annulu s tear involv ing the centra l and right parace ntral region s. There is bilate ral facet and ligame ntum flavum hypert rophy. No signif icant spinal canal stenos is. There is modera te right and modera te to severe left neural forami nal stenos is. L5-S1: There is disc desicc ation with loss of disc height . There is a circum ferent ial broad disc bulge with endpla te hypert rophy. No signif icant spinal canal stenos is. There is modera te to severe bilate ral neural forami nal stenos is. IMPRES AQUILINO: 1. No fractu re of the lumbar spine. 2. Advanc ed lower lumbar degene rative disc diseas e and facet arthro negar with signif icant neural forami nal stenos is bilate rally at L4-L5 and L5-S1. These findin gs may corres pond to lower extrem ity radicu lar sympto ms in the bilate ral L4 and L5 nerve root distri bution s. Page 2 of 3 [facility] t Name: ARIE VERA Jacquie Access ion #: [id number] Sex: M : 1955 Exam Date: 10/16/19 7:38 AM Exam Name: MRI L SPINE WO Admitt ing Diagno sis(es ): 3. No signif icant spinal canal stenos is is identi fied at any level in the lumbar spine. Create d and electr onical ly signed by: Chapo hart MD Signed Date: 10/16/19 4:29 PM (CT) Dictat ed by: Chapo hart MD (CT) (CT) Page 3 of [email or web address] [place] [address] (Imaging) [address], [place], [address], 10/15/2022 17:35:43 10/17/19 23 10/15/2022 MRI, lumba r spine , w/o contr ast No observ ation record ed. [email or web address] [facility] [address], [place], [address], 10/16/2022 14:23:36 Result Notes None recorded. Problems Name Problem SNOMED Code Status Onset Date Resolution Date Notes Provider Name and Address Organization Details Recorded Time Bilateral osteoarth ritis of knees 06788853364 9107 Active 2021 Not Available [facility] 3 09:18:59 Disorder of shoulder 339787634 Completed Not Available [facility] 3 09:18:59 Lateral epicondyl itis 046228130 Completed Not Available [facility] 3 09:18:59 Tear of meniscus of knee 886345631 Active Not Available [facility] 3 09:18:59 Respirato ry tract infection 011561313 Completed Not Available [facility] 3 09:18:59 Tear of medial meniscus of knee 371434048 Active 2021 Not Available [facility] 3 09:18:59 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 39634575 Active Not Available [facility] 3 09:19:00 Current tear of medial cartilage AND/OR meniscus of knee Completed Not Available [facility] 3 09:19:00 Knee pain Active Not Available [facility] 3 09:19:00 Type 2 diabetes mellitus without complicat ion 635930096 Active Not Available [facility] 3 09:19:00 Osteoarth ritis of right knee joint 32947030424 9100 Active 2021 Not Available [facility] 3 09:19:00 Vitamin D deficienc y 22565917 Completed Not Available [facility] 3 09:19:00 Sinusitis 00318815 Active Not Available [facility] 3 09:19:00 Osteoarth ritis 300778992 Completed Not Available [facility] 3 09:19:01 Rotator cuff syndrome 5456334 Active Not Available [facility] 3 09:19:01 Disorder of rotator cuff 917633056 Completed Not Available [facility] 3 09:19:01 Obesity 052906181 Active Not Available [facility] 3 09:19:01 Sprain of ankle 74789167 Completed Not Available [facility] 3 09:19:01 Shoulder pain 74120345 Active Not Available [facility] 3 09:19:01 Pain of left knee joint 37714294255 4107 Active 2021 Not Available [facility] 3 09:19:01 Medial epicondyl itis 37160279 Completed Not Available [facility] 3 09:19:02 Hyperlipi demia 79693022 Active Not Available [facility] 3 09:19:02 Disorder of bursa of shoulder region 66863413 Completed Not Available [facility] 3 09:19:02 Essential hypertens ion 79230903 Active Not Available [facility] 3 09:19:02 Derangeme nt of knee 49181143 Completed Not Available [facility] 3 09:19:02 Disorder of male genital organ 91926719 Completed Not Available [facility] 3 09:19:02 Spinal stenosis 75620856 Completed Not Available [facility] 3 09:19:03 Closed fracture of phalanx of foot 56804291 Completed Not Available [facility] 3 09:19:03 Fatigue 89662207 Completed Not Available [facility] 3 09:19:03 Pain in limb 28143342 Completed Not Available [facility] 3 09:19:03 Right side sciatica 31582458592 9101 Active 2022 Rachael Wilkinson MD [address] [facility], [facility] [address], [place], [address] , [facility] [place] [facility] 3 12:17:02 Overweigh t 715946030 Active 2022 Rachael Wilkinson MD [address], [facility] [address], [place], [address] , [facility] 3 12:17:47 Pain in right hip joint 51271778567 9102 Active 2022 Janeeniban Ryan NON LICENSED OPERATOR null, [place] [facility] 3 12:45:32 Low back pain 308330844 Active 2022 Janeeniban Ryan NON LICENSED OPERATOR null, [place] [facility] 3 12:58:23 Spinal stenosis of lumbar region 46675481 Active 2022 Sasha Sarmiento null, [place] [facility] 3 13:10:29 Abnormal weight 93594707 Active 2023 Akila Devries [place] null, [place] [facility] 4 09:29:23 Problem Notes None recorded. Procedures Surgical History None recorded. Imaging Results Imaging Date Name Status LastModified by [facility] Details LastModified Time 10/09/2022 XR, hip + pelvis, unilateral completed sridhar [facility] [place] [address], [place], [address], 10/09/2022 13:11:49 10/09/2022 XR, lumbar spine completed sridhar [facility] [place] [address], [place], [address], 10/09/2022 13:12:40 10/15/2022 MRI L spine wo completed sridhar [facility] (Imaging) [address], [place], [address], 10/15/2022 17:35:43 10/15/2022 MRI, lumbar spine, w/o contrast completed [email or web address] [facility] [address], [place], [address], 10/16/2022 14:23:36 Procedure Notes None recorded. Medical Equipment None Reported. Allergies No known drug allergies Medications Name Sig Start Date Stop Date Status Note LastModified by Organization Details LastModified Time celecoxib 200 mg capsule TAKE 1 CAPSULE BY MOUTH EVERY DAY active Not Available Not Available No t Available cyclobenzap rine 10 mg tablet take one tablet three times daily as needed active Not Available Not Available No t Available atorvastati n 40 mg tablet TAKE 1 TABLET BY MOUTH DAILY active Not Available Not Available No t Available prednisone 10 mg tablet TAKE 1 TAB 3 TIMES A DAY X3 DAYS, 1 TAB TWICE DAILY X2 DAYS, THEN 1 TAB ONCE A DAY X1 DAY active Not Available Not Available No t Available atorvastati n 20 mg tablet TAKE 1 TABLET BY MOUTH EVERY DAY active Not Available Not Available No t Available azithromyci n 250 mg tablet take 2 tabs 1st day.then one pill daily for 4days active Not Available Not Available No t Available ibuprofen 800 mg tablet 11/21 completed Not Available Not Available Not Available hydrocodone 5 mg-acetamin ophen 325 mg tablet TAKE 1 TABLET BY MOUTH EVERY 6 HOURS NEEDED FOR PAIN 06/18 completed Not Available Not Available Not Available phenazopyri dine 200 mg tablet TAKE 1 TABLET BY MOUTH 3 TIMES A DAY NEEDED FOR PAIN 06/18 completed Not Available Not Available Not Available lisinopril 20 mg tablet TAKE 1 TABLET BY MOUTH EVERY DAY active Not Available Not Available No t Available clonazepam 1 mg tablet 11/21 completed Not Available Not Available Not Available permethrin 5 % topical cream Apply 1 applicati on every day by topical route for 10 days. 01/06 completed Not Available Not Available Not Available phentermine 37.5 mg tablet TAKE 1 TABLET BY MOUTH EVERY DAY active Not Available Not Available No t Available ciprofloxac in 500 mg tablet 04/13 completed Not Available Not Available Not Available sulfamethox azole 800 mg-trimetho prim 160 mg tablet 04/13 completed Not Available Not Available Not Available tramadol 50 mg tablet TAKE 1 TABLET BY MOUTH EVERY 6 HOURS NEEDED 11/21 completed Not Available Not Available Not Available sildenafil 100 mg tablet TAKE 1/2 TO 1 TABLET BY MOUTH ONCE DAILY NEEDED FOR SEXUAL ACTIVITY. ADMINISTE R 30 MINUTES TO 4 HOURS BEFORE ACTIVITY active Not Available Not Available No t Available glimepiride 1 mg tablet TAKE 1 TABLET DAILY WITH BREAKFAST 08/12 completed Not Available Not Available Not Available prednisone 10 mg tablets in a dose pack Take 1 tab by mouth, 3 times a day for 3 daysTake 1 tab by mouth 2 times a day for 2 daysTake 1 tab by mouth once a day for 1 day 2022 active Not Available Not Available Not Avai lable tamsulosin 0.4 mg capsule TAKE 1 CAPSULE BY MOUTH EVERY DAY AT BEDTIME active Not Available Not Available No t Available Kenalog 10 mg/mL suspension for injection In office injection administe red by the provider 06/18 completed [facility]: 0003- [phone]- [phone] Not Available Not Available Not Available cephalexin 500 mg capsule TAKE 1 CAPSULE BY MOUTH EVERY 8 HOURS 05/21 completed Not Available Not Available Not Available metformin 1,000 mg tablet TAKE 1 TABLET BY MOUTH TWICE A DAY active Not Available Not Available No t Available Biaxin XL 500 mg tablet,exte nded release Take 2 tablets twice a day by oral route for 10 days. 08/07 completed Not Available Not Available Not Available lisinopril 10 mg tablet 11/21 completed Not Available Not Available Not Available lidocaine 5 % topical patch 04/13 completed Not Available Not Available Not Available mupirocin calcium 2 % topical cream 04/13 completed Not Available Not Available Not Available docusate sodium 100 mg capsule TAKE 1 SOFTGEL BY MOUTH TWICE A DAY 10/09 completed Not Available Not Available Not Available sertraline 25 mg tablet 11/21 completed Not Available Not Available Not Available lisinopril 20 mg-hydrochl orothiazide 25 mg tablet 1 TABLET ONCE A DAY BY MOUTH 11/21 completed Not Available Not Available Not Available diclofenac sodium 75 mg tablet,soco yed release TAKE 1 TABLET BY MOUTH TWICE A DAY active Not Available Not Available No t Available hydrocodone 5 mg-acetamin ophen 500 mg tablet active Not Available Not Available No t Available ergocalcife rol (vitamin D2) 1,250 mcg (50,000 unit) capsule TAKE 1 CAPSULE WEEKLY 11/21 completed Not Available Not Available Not Available methylpredn isolone 4 mg tablets in a dose pack TAKE 6 TABLETS ON DAY 1 DIRECTED ON PACKAGE AND DECREASE BY 1 TAB EACH DAY FOR A TOTAL OF 6 DAYS 10/09 completed Not Available Not Available Not Available metformin ER 500 mg tablet,exte nded release 24 hr TAKE 2 TABLETS BY MOUTH TWICE A DAY 11/21 completed Not Available Not Available Not Available sertraline 50 mg tablet 11/21 completed Not Available Not Available Not Available amoxicillin 875 mg-potassiu m clavulanate 125 mg tablet 11/21 completed Not Available Not Available Not Available Benicar HCT 40 mg-25 mg tablet TAKE 1 TABLET EVERY DAY 11/21 completed Not Available Not Available Not Available metformin ER 1,000 mg tablet,exte nded release 24hr (osmotic) Take 1 tablet twice a day by oral route for 90 days. 11/21 completed Not Available Not Available Not Available nitrofurant oin monohydrate /macrocryst als 100 mg capsule TAKE 1 CAPSULE BY MOUTH EVERY 12 HOURS FOR 5 DAYS. MUST ADMINISTE R WITH A MEAL/FOOD 06/18 completed Not Available Not Available Not Available Vytorin 10 mg-40 mg tablet Take 1 tablet every day by oral route for 90 days. 11/21 completed Not Available Not Available Not Available OneTouch UltraSoft Lancets 11/21 completed Not Available Not Available Not Available Boostrix Tdap 2.5 Lf unit-8 mcg-5 Lf/0.5 mL intramuscul ar syringe active Not Available Not Available N ot Available fenofibrate 160 mg tablet 04/13 completed Not Available Not Available Not Available lidocaine (PF) 10 mg/mL (1 %) injection solution In office injection administe red by the provider 07/18 completed [facility]: [phone]- [phone]- [phone] Not Available Not Available Not Available lidocaine (PF) 5 mg/mL (0.5 %) injection solution Take 60 mg by injection route. 06/18 completed Not Available Not Available Not Available Januvia 50 mg tablet TAKE 1 TABLET BY MOUTH EVERY DAY active Not Available Not Available No t Available Januvia 100 mg tablet TAKE 1 TABLET BY MOUTH EVERY DAY 11/21 completed Not Available Not Available Not Available hydrochloro thiazide 12.5 mg tablet TAKE 1 TABLET BY MOUTH EVERY DAY 08/12 completed Not Available Not Available Not Available Janumet 50 mg-1,000 mg tablet TAKE 1 TABLET BY MOUTH TWICE A DAY WITH MEALS 11/21 completed Not Available Not Available Not Available levocetiriz ine 5 mg tablet 1 TABLET ONCE A DAY BY MOUTH 11/21 completed Not Available Not Available Not Available Flector 1.3 % transdermal 12 hour patch Apply 1 patch twice a day by transderm al route for 30 days. 02/04 completed Not Available Not Available Not Available metformin ER 1,000 mg 24 hr tablet,exte nded release (gastric reten.) TAKE ONE TAB BY MOUTH TWOCE DAILY 11/21 completed Not Available Not Available Not Available [place] Choice Level 2 Control solution 07/28 completed Not Available Not Available Not Available Tradjenta 5 mg tablet 11/21 completed Not Available Not Available Not Available Ulti-Smith misc 04/13 completed Not Available Not Available Not Available OneTouch Verio test strips USE TO TEST ONCE DAILY active Not Available Not Available No t Available Bydureon 2 mg subcutaneou s extended release suspension once weekly active Not Available Not Available No t Available lancets 30 gauge once daily 11/21 completed Not Available Not Available Not Available Invokana 100 mg tablet TAKE 1 TABLET EVERY DAY 11/21 completed Not Available Not Available Not Available Zorvolex 35 mg capsule Take 1 capsule 3 times a day by oral route. 11/21 completed Not Available Not Available Not Available Jardiance 10 mg tablet TAKE 1 TABLET BY MOUTH DAILY active Not Available Not Available No t Available Belsomra 10 mg tablet TAKE 1 TABLET BY MOUTH EVERY DAY AT BEDTIME NEEDED FOR INSOMNIA 10/09 completed Not Available Not Available Not Available OneTouch Verio Flex Meter active Not Available Not Available Not Available Flucelvax Quad (PF) 60 mcg (15 mcg x 4)/0.5 mL IM syringe 11/21 completed Not Available Not Available Not Available Fluzone Quad (PF) 60 mcg (15 mcg x 4)/0.5 mL IM syringe active Not Available Not Available N ot Available Vitals Date Recorded Body height Body mass index (BMI) Body weight Body temperature Heart rate Oxygen saturation Oxygen saturation in Arterial blood by Pulse oximetry Systolic blood pressure Diastolic blood pressure Provider Name and Address Organization Details Last Updated DateTime 3 185.42 cm 29.7 kg/m2 268648. 28 g 97.7 [degF] 58 /min 96 % 96 % 128 mm[Hg] 80 mm[Hg] Mitzi Pruitt , [facility] [employer] [facility] 3 12:05:09 Date Recorded Body height Body mass index (BMI) Body weight Provider Name and Address Organization Details Last Updated DateTime 10/09/2022 185.42 cm 28.4 kg/m2 69766.36 g Janeen Ryan, NON LICENSED OPERATOR [place] [email or web address] [facility] [employer] [facility] 10/09/2022 12:42:34 Date Recorded Body height Body mass index (BMI) Body weight Provider Name and Address Organization Details Last Updated DateTime 10/23/2022 185.42 cm 29.3 kg/m2 259232.51 g Janeen Ryan, NON LICENSED OPERATOR [facility] 10/23/2022 10:37:51 Date Recorded Body height Body mass index (BMI) Body weight Provider Name and Address Organization Details Last Updated DateTime 11/20/2022 185.42 cm 29.7 kg/m2 255770.28 g SAMMIE Rowan [facility] 11/20/2022 10:45:24 Date Recorded Body height Body mass index (BMI) Body weight Body temperature Heart rate Oxygen saturation Oxygen saturation in Arterial blood by Pulse oximetry Systolic blood pressure Diastolic blood pressure Provider Name and Address Organization Details Last Updated DateTime 4 185.42 cm 31.9 kg/m2 682413. 35 g 98 [degF] 75 /min 97 % 97 % 132 mm[Hg] 72 mm[Hg] Akila Devries MA [facility] 4 09:32:41 Social History Question Answer Notes LastModified by Organizat ion Details LastModified Time Tobacco Smoking Status Former Smoker Not Available [employer] 2022 09:13:19 What Is Your Level Of Alcohol Consumption? Occasional [email or web address] Information not available 10/09/2022 What Is Your Level Of Caffeine Consumption? Moderate MIGRATION.[id number] Information not available 2022 In The 14 Days Before Symptom Onset, Have You Had Close Contact With A Laboratory-confir med COVID-19 While That Case Was Ill? No MIGRATION.[id number] 0706 Information not available 2022 In The 14 Days Before Symptom Onset, Have You Had Close Contact With A Person Who Is Under Investigation For COVID-19 While That Person Was Ill? No MIGRATION.941920 9180 Information not available 2022 What Type Of Diet Are You Following? REGULAR MIGRATION.058130 5545 Information not available 2022 What Is Your Occupation? [employer] MIGRATION.873769 1628 Information not available 2022 How Much Tobacco Do You Smoke? 0.5 PPD MIGRATION.649314 4034 Information not available 2022 Do You Use Any Illicit Or Recreational Drugs? Yes [place] MIGRATION.462935 9165 Information not available 2022 Has Tobacco Cessation Counseling Been Provided? No MIGRATION.220467 5868 Information not available 2022 How Many Years Have You Smoked Tobacco? 25 MIGRATION.304863 2552 Information not available 2022 Have You Used IV Drugs? No MIGRATION.712909 1211 Information not available 2022 Do You Have Any Dietary Restrictions? No MIGRATION.173180 4160 Information not available 2022 Do You Or Have You Ever Used Any Other Forms Of Tobacco Or Nicotine? No MIGRATION.000057 3298 Information not available 2022 Sex: Unknown Functional Status Question Answer Note LastModified by Organizat ion Details LastModified Time What is your exercise level? Moderate [id number].[id number] Information not available 2022 Mental Status None recorded. Family History Relationship Description Onset Age of this Age Resolved Age Notes LastModified by Organization Details LastModified Time Sister Heart disease [email or web address] Not available 2022 12:43:44 Brother Family history of stroke [email or web address] Not available 2022 12:43:54 Father Family history of malignant neoplasm [email or web address] Not available 2022 12:44:07 Medical History Condition Response BLINDNESS N RHEUMATIC FEVER N KIDNEY STONES N BLADDER PROBLEMS N MRSA N CARPAL TUNNEL SYNDROME N OTHER # 1 N POLIO N LUNG DISEASE/DISORDER N HISTORY OF DRUG ABUSE N COPD N RADIATION / CHEMOTHERAPY N Other # 2 N SPORTS INJURY N ANKLE PAIN N BLOOD DISEASES N SURGERY N EAR OR HEARING PROBLEMS Y MUMPS N SCHIZOPHRENIA N SHINGLES N FEMALE PROBLEMS / INFECTIONS N DEPRESSION (INCLUDING POST ) N SHOULDER PAIN N BOWEL PROBLEMS N STROKE/TIA N THYROID DISEASE N KNEE PAIN N ULCERS N BENIGN PROSTATIC HYPERPLASIA N MEASLES N CERVICALGIA N TB SKIN TEST N MYOCARDIAL INFARCTION N PARAPELGIA N OBESITY N GERD/NAUSEA N ANEURYSM N URINARY/BLADDER/KIDNEY PROBLEMS N CORONARY ARTERY DISEASE (CAD) N MENIERE'S DISEASE N ADDICTION CONCERNS N ENDOMETRIOSIS N USE OF BLOOD THINNERS N SKIN PROBLEMS N EMPHYSEMA N GASTROINTESTINAL DISORDER N MUSCLE,JOINT OR BONE PROBLEMS N DVT N STOMACH ULCERS N GASTROINTESTINAL BLEEDING N BLOOD CLOTS N ASTHMA N CATARACTS N USE OF NSAIDS N CONCUSSION OR SPINAL TRAUMA N ERECTILE DYSFUNCTION N GI PROBLEMS N CHF N Low Testosterone N NEUROPATHY N INFERTILITY N AIDS/HIV N FRACTURES N CHEMOTHERAPY / RADIATION N VISION/EYE PROBLEMS N LIVER DISEASE N MALE HYPOGONADISM N ELBOW PAIN N HYPERTENSION N TOURETTE'S N ANXIETY DISORDER N Metal allergy N BLOOD TRANSFUSION N ANEMIA/BLOOD DISORDER N CHRONIC EAR INFECTIONS N BIPOLAR DISORDER N BRONCHITIS N OSTEOARTHRITIS N TUBERCULOSIS N GLAUCOMA N FOOT PROBLEM N HEART VALVE DISORDERS N DIVERTICULITIS Y CHICKENPOX N SLEEP APNEA N ALLERGIES/HAYFEVER N SOFT TISSUE INJURY N INFECTIOUS DISEASE N HEART ARRHYTHMIA N PROSTATE N INSOMNIA N RHEUMATOID ARTHRITIS N HIGH CHOLESTEROL / HYPERLIPIDEMIA N EYE PROBLEMS Y HYPERTHYROIDISM N EATING DISORDER N NEUROLOGICAL PROBLEMS N EDEMA N CHRONIC PAIN SYNDROME N HYPOTHYROIDISM N CAROTID BLOCKAGE N CONSTIPATION N BACK / NECK PROBLEMS N HAVE YOU BEEN HOSPITALIZED OR SEEN IN [facility] IN THE PAST YEAR ? N ATHEROSCLEROSIS N BURSITIS N BREAST PROBLEMS N HERNIATED DISC N DIALYSIS N ECZEMA N FIBROMYALGIA N OSTEOPOROSIS N ARTHRITIS N NO SIGNIFICANT PAST MEDICAL HISTORY N PERIPHERAL NEUROPATHY N APPENDICITIS N DIABETES, TYPE Y BAD TEETH N HEARTBURN / REFLUX N ADD/ADHD N AUTISM SPECTRUM DISORDER (ASD) N HEPATITIS / LIVER DISEASE N PULMONARY DISEASE N GOUT N SLEEP DISORDER N ALZHEIMER'S DISEASE N PAIN N HERPES N DEMENTIA N HEADACHES/MIGRAINES N SEIZURES/EPILEPSY N VASCULAR DISEASE N PACEMAKER N Blood Disorder N HIP PAIN N DIZZINESS N HEAD TRAUMA OR INJURY N HEART DISEASE/HEART PROBLEMS N KIDNEY DISEASE N DEVELOPMENTAL OR BEHAVIORAL DISORDERS N MULTIPLE SCLEROSIS N SCARLET FEVER N MENTAL DISORDER/ILLNESS N CARDIAC ARRHYTHMIA N CANCER: SPECIFY N ANESTHESIA COMPLICATIONS N PNEUMONIA N ATRIAL FIBRILLATION N Gall Stones N PULMONARY EMBOLISM N AUTOIMMUNE DISEASE N Past Encounters Encounter ID Performer Location Encounter Start Date Encounter Closed Date Diagnosis/Indication Diagnosis SNOMED-CT Code Diagnosis ICD10 Code Diagnosis Note [id number] [facility] [place] [address] [place] [address] 07/18/2020 00:00:00 07/19/2020 06:35:13 [id number] [facility] [place] [address] [place] [address] 08/16/2020 00:00:00 08/16/2020 12:44:57 [id number] [facility] [place] [address] [facility] [place] [address] 11/16/2020 00:00:00 11/17/2020 09:25:11 [id number] [facility] [place] [address] [facility] [place] [address] 02/18/2021 00:00:00 02/19/2021 06:03:37 [id number] [facility] [place] [address] [facility] [address] , [place] [address] 05/21/2021 00:00:00 05/21/2021 10:42:38 [id number] [facility] [address] [place] [address] 08/12/2021 00:00:00 08/12/2021 10:51:00 [id number] [facility] [place] [address] [place] [address] [place] [address] 03/14/2022 00:00:00 03/14/2022 18:47:54 [id number] Rachael Wilkinson MD [facility] [place] [address] [place] [address] [place] [address] 06/18/2022 11:59:11 06/18/2022 12:21:01 Right side sciatica [id number] 51001 M54.31 Gave # to chiropract or Dr. Pandey Overweight [id number] E66 .3 Continue weight loss efforts. [id number] Suki Morris MD [facility] [address] [place] [address] 10/09/2022 12:23:54 10/09/2022 13:37:42 Pain in right hip joint [id number] 65599 M25.551 Low back pain 968024995 M54.50 Spinal demetrio nosis of lumbar region 43258787 M48.061 [id number] Suki Morris MD [facility] [place] [address] [place] [address] 10/23/2022 10:19:23 10/23/2022 11:12:57 Low back pain 098020291 M54.50 Spinal demetrio nosis of lumbar region 60436670 M48.061 Pain in ri ght hip joint [id number] 21396 M25.551 [id number] Suki Morris MD [facility] [address] [place] [address] 11/20/2022 10:42:03 11/20/2022 12:17:35 Spinal stenosis of lumbar region 25728723 M48.061 Pain in ri ght hip joint [id number] 24349 M25.551 Low back pain 831015942 M54.50 [id number] ADAM Samaniego [facility] [place] [address] [facility] , [place] [address] 05/01/2023 09:15:42 05/01/2023 09:50:18 Abnormal weight 60281757 R63.4 Overweight 151728747 E66 .3 Type 2 caio betes mellitus without complication 467251527 E11.9 Hyperlipidemia 17395356 E78.5 Essential hypertension 06444936 I10 Health Concerns Section Related Observation LastModified by Organization Detai ls LastModified Time None Recorded Concern Status LastModified by Organization Details LastModified Time None Recorded Advance Directives Directive None Recorded Payers Encounter Date Sequence Insurance Name Policy Number Policy Moreno Covered Member ID Moreno Member ID Guarantor Name 06/18/2022 1 [employer] - [employer] (MEDICARE REPLACEMENT/ ADVANTAGE - HMO) [id number] Arie D Selmer [id number] Arie D Selmer 10/09/2022 1 [employer] - [employer] (MEDICARE REPLACEMENT/ ADVANTAGE - HMO) [id number] Arie D Selmer [id number] Arie D Selmer 10/23/2022 1 [employer] - [employer] (MEDICARE REPLACEMENT/ ADVANTAGE - HMO) [id number] Arie D Selmer [id number] Arie D Selmer 11/20/2022 1 [employer] - [employer] (MEDICARE REPLACEMENT/ ADVANTAGE - HMO) [id number] Arie D Selmer [id number] Arie D Selmer 05/01/2023 1 [employer] - [employer] (MEDICARE REPLACEMENT/ ADVANTAGE - HMO) [id number] Arie D Selmer [id number] Arie D Selmer Notes Date Note Type Note Provider Name and Address Organization Details Recorded Time 06/18/2022 text/html Here today c/o sciatica of right side. Saw a chiropractor and no help. Hard to get into a vehicle. Here for phentermine f/u doing ok with this. Wants to get to 215.Last A1C was 6.8%. His sugars have been running in the 130s. Had A1C in 06/05 so does not need this checked. Rachael Wilkinson MD [address], [place], [address], [facility] 06/19/2022 05:33:12 10/09/2022 text/html L-spineReported bypatient.Location :posterior; deep Quality:aching; throbbing; dull; frequent Severity:moderate Duration:continuou s since onset Timing:chronic Context:lifting; twisting; overuse Alleviating Factors:lying down; position change; ice; rest; elevation Aggravating Factors:walking; bending/squatting; exercise Associated Symptoms:no numbness; no tingling; no swelling; no redness; no ecchymosis; no catching/locking; no popping/clicking; no buckling; no grinding; no instability; no radiation down leg; no drainage; no fever; no chills; no weight loss; no change in bowel/bladder habits;weakness;wa tequila Morris MD [address], [place], [address], [facility] 10/09/2022 13:13:13 10/23/2022 text/html Patient returns hip and back pain. He has pain low back area radiating to his buttocks worse with activity somewhat relieved by rest. He states really the time that hurts the worse is when he is driving. Suki Morris MD [address], [place], [address], [facility] 10/23/2022 11:12:23 11/20/2022 text/html Patient returns back and stenosis pain. The pain is resolved to a degree with conservative treatment. He has had a nice response to non operative intervention, but has not reached his treatment goals. Suki Morris MD [address], [place], [address], [employer] 11/20/2022 11:49:43 05/01/2023 text/html got down to 210. wants to lose again ADAM Samaniego [address], [place], [address], [employer] 05/03/2023 16:54:38
--- OUTSIDE RECORDS SUMMARY | 2024-06-15 08:55 | XMS_ITS | CONTINUITY OF CARE DOCUMENT ---
Author Name [email or web address] Address Unknown Organization [facility] Address [address] [facility] [address] [place] [address] Phone [phone] Care Team Providers Care Copy Writer Name Role Phone Satya GILBERT, Micky Unavailable [phone] CAMILA CALLAHAN MD, MAYRA Unavailable ALEXSANDER GILBERT, ALEXANDRA Unavailable Unavailable INSURANCE PROVIDERS Payer name Policy type / Coverage type Avery red libertarian ID [facility] [id number]
== END 2024-06-15 08:36 | disposition home or self-care (01) ==
PROVIDERS: PCP Internal Medicine; Visit Provider Internal Medicine
DX: I35.8 Other nonrheumatic aortic valve disorders (principal); I35.0 Nonrheumatic aortic (valve) stenosis; I08.1 Rheumatic disorders of both mitral and tricuspid valves; I10 Essential (primary) hypertension; E11.9 Type 2 diabetes mellitus without complications; Z12.11 Encounter for screening for malignant neoplasm of colon
CPT/HCPCS: 93306